=== PATIENT | female | born 1940 | race Caucasian/White ===

== ENCOUNTER 2018-03-09 12:58 | Inpatient (IN) | payer OTHER ==
[2018-03-09 13:54] LABS: % BASOPHILS 0.4 % (0.0-2.0); % EOSINOPHILS 2.1 % (0.0-5.0); % LYMPHOCYTES 29.9 % (20.0-50.0); % MONOCYTES 8.6 % (2.0-10.0); EOSINOPHILE ABSOLUTE 0.1 Th/cmm (0.1-0.4); HEMATOCRIT 33.7 % (41.0-60); HEMOGLOBIN 11.3 gm/dL (12-16); LYMPHOCYTE ABSOLUTE 1.7 Th/cmm (1.5-3.0); MEAN CELL VOLUME 92.6 fl (81-100); MEAN CORPUSCULAR HEMOGLOBIN 31.1 pg (27.0-31.0); MEAN CORPUSCULAR HGB CONC 33.6 pg (28.0-36.0); MONOCYTE ABSOLUTE 0.5 Th/cmm (0.3-1.0); NEUTROPHILE ABSOLUTE 3.4 Th/cmm (1.8-8.0); PLATELET COUNT 158 Th/cmm (150-400); RED BLOOD COUNT 3.64 Mil/cmm (3.80-5.20); RED CELL DISTRIBUTION WIDTH 13.7 % (11.5-20.0); WHITE BLOOD COUNT 5.7 Th/cmm (4.8-10.8)
[2018-03-09 14:11] LABS: ALB/GLOB RATIO 1.7 (1.0-1.8); ALBUMIN 3.7 gm/dL (3.7-5.3); ALKALINE PHOSPHATASE 75 U/L (34-104); ANION GAP 12.3 (7.0-16.0); BILIRUBIN,TOTAL 0.4 mg/dL (0.3-1.0); BUN - UREA NITROGEN 38 mg/dL (7-25); CALCIUM SERUM 8.9 mg/dL (8.6-10.3); CARBON DIOXIDE 24.4 mEq/L (21.0-31.0); CHLORIDE 109 mEq/L (98-107); CREATININE - SERUM 1.2 mg/dL (0.6-1.2); GLUCOSE 107 mg/dL (70-105); MAGNESIUM 2.2 mg/dL (1.9-2.7); PHOSPHOROUS 3.1 mg/dL (2.5-5.0); POTASSIUM SERUM 3.7 mEq/L (3.5-5.1); SGOT 30 U/L (13-39); SGPT/ALT 30 U/L (7-52); SODIUM SERUM 142 mEq/L (136-145); TOTAL PROTEIN,SERUM 5.9 gm/dL (6.0-8.3)
[2018-03-09 15:03] LABS: URINE SOURCE CLEAN C
[2018-03-09 15:05] LABS: URINE BILIRUBIN NEGATIVE (NEGATIVE); URINE BLOOD MODERATE (NEGATIVE); URINE GLUCOSE (UA) NEGATIVE (NEGATIVE); URINE KETONE NEGATIVE (NEGATIVE); URINE LEUKOCYTE ESTERASE NEGATIVE (NEGATIVE); URINE MICROSCOPIC INDICATED? YES; URINE NITRATE NEGATIVE (NEGATIVE); URINE PH 7.5 (4.6 - 8.0); URINE PROTEIN NEGATIVE (NEGATIVE); URINE UROBILINOGEN 0.2 E.U./dL (0.2 - 1.0)
[2018-03-09 15:06] LABS: URINE CLARITY CLEAR (CLEAR); URINE COLOR YELLOW
[2018-03-09 15:10] LABS: URINE BACTERIA FEW /hpf (NONE SEEN); URINE EPITHELIAL CELLS FEW /lpf (FEW)
[2018-03-09 15:20] LABS: AMPHETAMINE URINE NEGATIVE (NEGATIVE); BARBITURATES URINE NEGATIVE (NEGATIVE); BENZODIAZEPINES QUAL URINE NEGATIVE (NEGATIVE); CANNABINOID THC NEGATIVE (NEGATIVE); COCAINE METABOLITE QUAL URINE NEGATIVE (NEGATIVE); METHADONE URINE NEGATIVE (NEGATIVE); METHAMPHETAMINES QUAL URINE NEGATIVE (NEGATIVE); OPIATES (MORPHINE) QUAL. URINE NEGATIVE (NEGATIVE); PHENCYCLIDINE (PCP) URINE NEGATIVE (NEGATIVE); TRICYCLICS (TCA) QUAL. URINE POSITIVE (NEGATIVE)
[2018-03-09 15:57] LABS: INR 0.99 (0.5-1.4); PROTHROMBIN TIME (TEST) 10.3 SECONDS (9.5-11.5)
[2018-03-09 18:17] VITALS: BP 161/93
[2018-03-09] MEDS ORDERED: Maalox 30 mL Cup PO PRN (18:20)
[2018-03-09] MEDS ORDERED: Magnesium Hydroxide (MOM) 30 mL UDC PO PRN (18:20)
[2018-03-10] MEDS: Multivitamin Tab PO SCH ×2 (08:41→08:57)
--- NOTE | 2018-03-10 10:01 | History & Physical ---
ADMIT DATE: 03/09/2018 CHIEF COMPLAINT: Agitation. HISTORY OF PRESENT ILLNESS: This is a 77-year-old female who was admitted from halfway facility to the Emergency Room of [facility] due to increase in agitation. REVIEW OF SYSTEMS: GENERAL: This is a 77-year-old female that appears as stated. No fever. No weakness. HEENT: No headache. No dizziness. EYES: No eye pain. No blurring of vision. NECK: No neck pain. No nuchal rigidity. CHEST: No chest pain or palpitation. PULMONARY: No shortness of breath. No coughing. GASTROINTESTINAL: No diarrhea. No constipation. No abdominal pain. MUSCULOSKELETAL: No joint pain. No muscle pain. SOCIAL HISTORY: The patient lives in assisted living prior to hospitalization. PSYCHIATRIC HISTORY: Includes dementia. PAST SURGICAL HISTORY: Unremarkable. FAMILY HISTORY: Unremarkable. PAST MEDICAL HISTORY: Includes osteoarthritis. PHYSICAL EXAMINATION: VITAL SIGNS: Temperature 97.6, heart rate 67, blood pressure 137/86, respiration of 18, 97% on room air. HEENT: Head is atraumatic and normocephalic. Eyes: Bilateral conjunctivae are clear. Bilateral pupils equal, round, reactive. NECK: Supple. No JVD. CARDIOVASCULAR: S1 and S2 without murmur. PULMONARY: Clear to auscultation. GASTROINTESTINAL: Soft and nontender without guarding. Positive bowel sounds. MUSCULOSKELETAL: No clubbing. No cyanosis noted. ASSESSMENT: 1. Dementia. 2. Osteoarthritis. PLAN: We will admit the patient to Psychiatric Unit. We will follow up with a psychiatrist to monitor the patient's condition and behavior. Treatment plans were discussed with the patient's nurse. Treatment plans were discussed with the Dr. Pereyra. JOB# [id number]
--- NOTE | 2018-03-11 09:40 | General Progress Note ---
Subjective - Review of Systems Events since last encounter: awake with increased agitation Objective - Results Result Diagrams: 03/09/18 13:46 03/09/18 13:46 Recent Labs: Laboratory Last Values WBC 5.7 Th/cmm (4.8-10.8) 03/09/18 13:46 RBC 3.64 Mil/cmm (3.80-5.20) L 03/09/18 13:46 Hgb 11.3 gm/dL (12-16) L 03/09/18 13:46 Hct 33.7 % (41.0-60) L 03/09/18 13:46 MCV 92.6 fl (81-100) 03/09/18 13:46 MCH 31.1 pg (27.0-31.0) H 03/09/18 13:46 MCHC Differential 33.6 pg (28.0-36.0) 03/09/18 13:46 RDW 13.7 % (11.5-20.0) 03/09/18 13:46 Plt Count 158 Th/cmm (150-400) 03/09/18 13:46 MPV 10.0 fl 03/09/18 13:46 Neutrophils % 59.0 % (40.0-80.0) 03/09/18 13:46 Lymphocytes % 29.9 % (20.0-50.0) 03/09/18 13:46 Monocytes % 8.6 % (2.0-10.0) 03/09/18 13:46 Eosinophils % 2.1 % (0.0-5.0) 03/09/18 13:46 Basophils % 0.4 % (0.0-2.0) 03/09/18 13:46 PT 10.3 SECONDS (9.5-11.5) 03/09/18 13:46 INR 0.99 (0.5-1.4) 03/09/18 13:46 PTT (Actin FS) 26.2 SECONDS (26.0-38.0) 03/09/18 13:46 Sodium 142 mEq/L (136-145) 03/09/18 13:46 Potassium 3.7 mEq/L (3.5-5.1) 03/09/18 13:46 Chloride 109 mEq/L (98-107) H 03/09/18 13:46 Carbon Dioxide 24.4 mEq/L (21.0-31.0) 03/09/18 13:46 Anion Gap 12.3 (7.0-16.0) 03/09/18 13:46 BUN 38 mg/dL (7-25) H 03/09/18 13:46 Creatinine 1.2 mg/dL (0.6-1.2) 03/09/18 13:46 Est GFR ( Amer) TNP 03/09/18 13:46 Est GFR (Non-Af Amer) TNP 03/09/18 13:46 BUN/Creatinine Ratio 31.7 03/09/18 13:46 Glucose 107 mg/dL (70-105) H 03/09/18 13:46 Calcium 8.9 mg/dL (8.6-10.3) 03/09/18 13:46 Phosphorus 3.1 mg/dL (2.5-5.0) 03/09/18 13:46 Magnesium 2.2 mg/dL (1.9-2.7) 03/09/18 13:46 Total Bilirubin 0.4 mg/dL (0.3-1.0) 03/09/18 13:46 AST 30 U/L (13-39) 03/09/18 13:46 ALT 30 U/L (7-52) 03/09/18 13:46 Alkaline Phosphatase 75 U/L (34-104) 03/09/18 13:46 Total Protein 5.9 gm/dL (6.0-8.3) L 03/09/18 13:46 Albumin 3.7 gm/dL (3.7-5.3) 03/09/18 13:46 Globulin 2.2 gm/dL 03/09/18 13:46 Albumin/Globulin Ratio 1.7 (1.0-1.8) 03/09/18 13:46 TSH 4.46 uIU/ml (0.34-5.60) 03/09/18 13:46 Urine Source CLEAN C 03/09/18 14:50 Urine Color YELLOW 03/09/18 14:50 Urine Clarity CLEAR (CLEAR) 03/09/18 14:50 Urine pH 7.5 (4.6 - 8.0) 03/09/18 14:50 Ur Specific [place] 1.015 (1.005-1.030) 03/09/18 14:50 Urine Protein NEGATIVE mg/dL (NEGATIVE) 03/09/18 14:50 Urine Glucose (UA) NEGATIVE mg/dL (NEGATIVE) 03/09/18 14:50 Urine Ketones NEGATIVE mg/dL (NEGATIVE) 03/09/18 14:50 Urine Blood MODERATE (NEGATIVE) H 03/09/18 14:50 Urine Nitrate NEGATIVE (NEGATIVE) 03/09/18 14:50 Urine Bilirubin NEGATIVE (NEGATIVE) 03/09/18 14:50 Urine Urobilinogen 0.2 E.U./dL (0.2 - 1.0) 03/09/18 14:50 Ur Leukocyte Esterase NEGATIVE (NEGATIVE) 03/09/18 14:50 Urine RBC 10-25 /hpf (0-5) H 03/09/18 14:50 Urine WBC 2-5 /hpf (0-5) 03/09/18 14:50 Ur Epithelial Cells FEW /lpf (FEW) 03/09/18 14:50 Urine Bacteria FEW /hpf (NONE SEEN) 03/09/18 14:50 Urine Opiates Screen NEGATIVE (NEGATIVE) 03/09/18 14:50 Urine Methadone Screen NEGATIVE (NEGATIVE) 03/09/18 14:50 Ur Barbiturates Screen NEGATIVE (NEGATIVE) 03/09/18 14:50 Valproic Acid 41.3 ug/mL (50.0-100.0) L 03/09/18 13:46 Ur Tricyclics Screen POSITIVE (NEGATIVE) H 03/09/18 14:50 Ur Phencyclidine Scrn NEGATIVE (NEGATIVE) 03/09/18 14:50 Amphetamines Screen NEGATIVE (NEGATIVE) 03/09/18 14:50 U Methamphetamines Scrn NEGATIVE (NEGATIVE) 03/09/18 14:50 U Benzodiazepines Scrn NEGATIVE (NEGATIVE) 03/09/18 14:50 U Cocaine Metab Screen NEGATIVE (NEGATIVE) 03/09/18 14:50 U Cannabinoids Screen NEGATIVE (NEGATIVE) 03/09/18 14:50 - Physical Exam Vitals and I&O: Vital Signs Temp 98.1 F 03/11/18 06:31 Pulse 62 03/11/18 06:31 Resp 22 03/11/18 06:31 BP 143/79 03/11/18 06:31 Pulse Ox 97 03/11/18 06:31 Intake & Output 03/10/18 03/11/18 03/11/18 18:59 06:59 18:59 Intake Total 950 240 Balance 950 240 Intake: Oral 950 240 Other: # Voids 4 1 # Bowel Movements 1 Active Medications: Current Medications Acetaminophen (Tylenol) 650 mg PO Q4HR PRN PRN Reason: Mild Pain / Temp above 100 Stop: 05/08/18 18:19 Al Hydrox/Mg Hydrox/Simethicone (Maalox) 30 ml PO Q4HR PRN PRN Reason: GI DISTRESS Stop: 05/08/18 18:19 Divalproex Sodium (Depakote Dr) 250 mg PO TID RICHARD; Protocol Stop: 05/09/18 08:59 Last Admin: 03/10/18 20:26 Dose: Not Given Lorazepam (Ativan) 0.5 mg PO Q4HR PRN; Protocol PRN Reason: Agitation Stop: 04/08/18 18:19 Last Admin: 03/10/18 23:51 Dose: 0.5 mg Lorazepam (Ativan) 1 mg PO TID PRN; Protocol PRN Reason: Anxiety Stop: 05/09/18 00:21 Magnesium Hydroxide (Milk Of Magnesia) 30 ml PO HS PRN PRN Reason: Constipation Memantine (Namenda) 5 mg PO DAILY RICHARD Stop: 05/10/18 08:59 Multivitamins/Vitamin C (Theragran) 1 tab PO DAILY RICHARD Stop: 05/09/18 08:59 Last Admin: 03/10/18 08:57 Dose: Not Given Quetiapine Fumarate (Seroquel) 100 mg PO TID RICHARD; Protocol Stop: 05/09/18 08:59 Last Admin: 03/10/18 20:27 Dose: Not Given Zolpidem Tartrate (Ambien) 5 mg PO HS PRN PRN Reason: Insomnia Stop: 05/08/18 18:19 Last Admin: 03/10/18 23:50 Dose: 5 mg General: No acute distress HEENT: Atraumatic Neck: Supple Cardiovascular: Regular rate, Normal S1, Normal S2 Lungs: Clear to auscultation Assessment/Plan - Problem List Patient Problems: All Active Problems LEFT FACIAL AND L ARM REDNESS (Acute) - Plan Plan: as per psych
--- NOTE | 2018-03-11 11:02 | Progress Notes ---
DATE: SUBJECTIVE: The patient is currently in the hospital, agitated, very aggressive, had been trying to climb out of bed. The patient with increased agitation, slamming doors and windows. History of dementia. On [id number], the patient calmer at this time, remains pretty confused, disoriented. She knows where she is, but does not know why she is here, noted to be upset also believing that medication is a poison, refusing night time medication due to the belief that it is poison. The patient was noted yesterday to be crying while watching TV, strange behaviors. ASSESSMENT: The patient remains disoriented as noted, minimally interactive today, telling me "go away," difficult interview. PLAN: We will continue to monitor. Continue Seroquel as noted. Consider the addition of Aricept and Namenda. Given ongoing symptoms, she remains pretty impulsive, unpredictable, ongoing safety concerns. JOB# [id number]
[2018-03-11] MEDS: Multivitamin Tab PO SCH (18:10)
[2018-03-12] MEDS: Multivitamin Tab PO SCH (10:17)
--- NOTE | 2018-03-12 10:27 | General Progress Note ---
Subjective - Review of Systems Events since last encounter: awake irritable disorganized Objective - Results Result Diagrams: 03/09/18 13:46 03/09/18 13:46 Recent Labs: Laboratory Last Values WBC 5.7 Th/cmm (4.8-10.8) 03/09/18 13:46 RBC 3.64 Mil/cmm (3.80-5.20) L 03/09/18 13:46 Hgb 11.3 gm/dL (12-16) L 03/09/18 13:46 Hct 33.7 % (41.0-60) L 03/09/18 13:46 MCV 92.6 fl (81-100) 03/09/18 13:46 MCH 31.1 pg (27.0-31.0) H 03/09/18 13:46 MCHC Differential 33.6 pg (28.0-36.0) 03/09/18 13:46 RDW 13.7 % (11.5-20.0) 03/09/18 13:46 Plt Count 158 Th/cmm (150-400) 03/09/18 13:46 MPV 10.0 fl 03/09/18 13:46 Neutrophils % 59.0 % (40.0-80.0) 03/09/18 13:46 Lymphocytes % 29.9 % (20.0-50.0) 03/09/18 13:46 Monocytes % 8.6 % (2.0-10.0) 03/09/18 13:46 Eosinophils % 2.1 % (0.0-5.0) 03/09/18 13:46 Basophils % 0.4 % (0.0-2.0) 03/09/18 13:46 PT 10.3 SECONDS (9.5-11.5) 03/09/18 13:46 INR 0.99 (0.5-1.4) 03/09/18 13:46 PTT (Actin FS) 26.2 SECONDS (26.0-38.0) 03/09/18 13:46 Sodium 142 mEq/L (136-145) 03/09/18 13:46 Potassium 3.7 mEq/L (3.5-5.1) 03/09/18 13:46 Chloride 109 mEq/L (98-107) H 03/09/18 13:46 Carbon Dioxide 24.4 mEq/L (21.0-31.0) 03/09/18 13:46 Anion Gap 12.3 (7.0-16.0) 03/09/18 13:46 BUN 38 mg/dL (7-25) H 03/09/18 13:46 Creatinine 1.2 mg/dL (0.6-1.2) 03/09/18 13:46 Est GFR ( Amer) TNP 03/09/18 13:46 Est GFR (Non-Af Amer) TNP 03/09/18 13:46 BUN/Creatinine Ratio 31.7 03/09/18 13:46 Glucose 107 mg/dL (70-105) H 03/09/18 13:46 Calcium 8.9 mg/dL (8.6-10.3) 03/09/18 13:46 Phosphorus 3.1 mg/dL (2.5-5.0) 03/09/18 13:46 Magnesium 2.2 mg/dL (1.9-2.7) 03/09/18 13:46 Total Bilirubin 0.4 mg/dL (0.3-1.0) 03/09/18 13:46 AST 30 U/L (13-39) 03/09/18 13:46 ALT 30 U/L (7-52) 03/09/18 13:46 Alkaline Phosphatase 75 U/L (34-104) 03/09/18 13:46 Total Protein 5.9 gm/dL (6.0-8.3) L 03/09/18 13:46 Albumin 3.7 gm/dL (3.7-5.3) 03/09/18 13:46 Globulin 2.2 gm/dL 03/09/18 13:46 Albumin/Globulin Ratio 1.7 (1.0-1.8) 03/09/18 13:46 TSH 4.46 uIU/ml (0.34-5.60) 03/09/18 13:46 Urine Source CLEAN C 03/09/18 14:50 Urine Color YELLOW 03/09/18 14:50 Urine Clarity CLEAR (CLEAR) 03/09/18 14:50 Urine pH 7.5 (4.6 - 8.0) 03/09/18 14:50 Ur Specific [place] 1.015 (1.005-1.030) 03/09/18 14:50 Urine Protein NEGATIVE mg/dL (NEGATIVE) 03/09/18 14:50 Urine Glucose (UA) NEGATIVE mg/dL (NEGATIVE) 03/09/18 14:50 Urine Ketones NEGATIVE mg/dL (NEGATIVE) 03/09/18 14:50 Urine Blood MODERATE (NEGATIVE) H 03/09/18 14:50 Urine Nitrate NEGATIVE (NEGATIVE) 03/09/18 14:50 Urine Bilirubin NEGATIVE (NEGATIVE) 03/09/18 14:50 Urine Urobilinogen 0.2 E.U./dL (0.2 - 1.0) 03/09/18 14:50 Ur Leukocyte Esterase NEGATIVE (NEGATIVE) 03/09/18 14:50 Urine RBC 10-25 /hpf (0-5) H 03/09/18 14:50 Urine WBC 2-5 /hpf (0-5) 03/09/18 14:50 Ur Epithelial Cells FEW /lpf (FEW) 03/09/18 14:50 Urine Bacteria FEW /hpf (NONE SEEN) 03/09/18 14:50 Urine Opiates Screen NEGATIVE (NEGATIVE) 03/09/18 14:50 Urine Methadone Screen NEGATIVE (NEGATIVE) 03/09/18 14:50 Ur Barbiturates Screen NEGATIVE (NEGATIVE) 03/09/18 14:50 Valproic Acid 41.3 ug/mL (50.0-100.0) L 03/09/18 13:46 Ur Tricyclics Screen POSITIVE (NEGATIVE) H 03/09/18 14:50 Ur Phencyclidine Scrn NEGATIVE (NEGATIVE) 03/09/18 14:50 Amphetamines Screen NEGATIVE (NEGATIVE) 03/09/18 14:50 U Methamphetamines Scrn NEGATIVE (NEGATIVE) 03/09/18 14:50 U Benzodiazepines Scrn NEGATIVE (NEGATIVE) 03/09/18 14:50 U Cocaine Metab Screen NEGATIVE (NEGATIVE) 03/09/18 14:50 U Cannabinoids Screen NEGATIVE (NEGATIVE) 03/09/18 14:50 - Physical Exam Vitals and I&O: Vital Signs Temp 98.2 F 03/11/18 20:36 Pulse 85 03/11/18 20:36 Resp 18 03/11/18 20:36 BP 179/99 03/11/18 20:36 Pulse Ox 93 03/11/18 20:36 Intake & Output 03/11/18 03/12/18 03/12/18 18:59 06:59 18:59 Intake Total 950 240 Balance 950 240 Weight (lbs) 79.379 kg Intake: Oral 950 240 Other: # Voids 3 # Bowel Movements 2 0 Weight Source Bedscale Active Medications: Current Medications Acetaminophen (Tylenol) 650 mg PO Q4HR PRN PRN Reason: Mild Pain / Temp above 100 Stop: 05/08/18 18:19 Al Hydrox/Mg Hydrox/Simethicone (Maalox) 30 ml PO Q4HR PRN PRN Reason: GI DISTRESS Stop: 05/08/18 18:19 Divalproex Sodium (Depakote Dr) 250 mg PO TID RICHARD; Protocol Stop: 05/09/18 08:59 Last Admin: 03/12/18 10:17 Dose: Not Given Lorazepam (Ativan) 0.5 mg PO Q4HR PRN; Protocol PRN Reason: Agitation Stop: 04/08/18 18:19 Last Admin: 03/10/18 23:51 Dose: 0.5 mg Lorazepam (Ativan) 1 mg PO TID PRN; Protocol PRN Reason: Anxiety Stop: 05/09/18 00:21 Magnesium Hydroxide (Milk Of Magnesia) 30 ml PO HS PRN PRN Reason: Constipation Memantine (Namenda) 5 mg PO DAILY RICHARD Stop: 05/10/18 08:59 Last Admin: 03/12/18 10:17 Dose: Not Given Multivitamins/Vitamin C (Theragran) 1 tab PO DAILY RICHARD Stop: 05/09/18 08:59 Last Admin: 03/12/18 10:17 Dose: Not Given Quetiapine Fumarate (Seroquel) 100 mg PO TID RICHARD; Protocol Stop: 05/09/18 08:59 Last Admin: 03/12/18 10:17 Dose: Not Given Zolpidem Tartrate (Ambien) 5 mg PO HS PRN PRN Reason: Insomnia Stop: 05/08/18 18:19 Last Admin: 03/10/18 23:50 Dose: 5 mg General: No acute distress HEENT: Atraumatic Neck: Supple Cardiovascular: Regular rate, Normal S1, Normal S2 Lungs: Clear to auscultation Assessment/Plan - Problem List Patient Problems: All Active Problems LEFT FACIAL AND L ARM REDNESS (Acute) - Plan Plan: as per psych
[2018-03-12] MEDS ORDERED: Haloperidol Lactate 5 mg/mL 1mL Vial IM STA (11:18)
--- NOTE | 2018-03-12 13:30 | Psychiatric Evaluation ---
DATE OF SERVICE: 03/10/2018 JUSTIFICATION FOR HOSPITALIZATION: The patient coming in from [facility] with increased agitation, slamming the doors and windows. CHIEF COMPLAINT: "The nurses are jealous of me." HISTORY OF PRESENT ILLNESS: A 77-year-old female coming from an outside facility unruly, agitated, aggressive behaviors, slamming doors, slamming windows, hitting the gonzales, confused, pacing the hallways, very upset, angry. On [id number], the patient is AO to name, not place, not situation, not year. Convinced that nursing staff there were jealous of her because their husbands, she is claiming, were taking pictures of her. The patient believes the year is 1917, does know the month, does not know the city, does not know really where she is or why she is here. The patient is yelling "go to hell." Receiving emergency medications upon initial presentation, very upset, mood "mad." PAST PSYCHIATRIC HISTORY: Dementia. PAST MEDICAL HISTORY: As noted. Please see full H and P. SOCIAL HISTORY: The patient states she was born in [place]. Not . She states she has 3 children. She states her children live with her, but she is living at a nursing home home, so this is untrue information. No noted drugs, alcohol, or tobacco. MENTAL STATUS EXAMINATION: Stated age, fair eye contact. AO to name only. Mood "mad." Affect flat. Thought processes were confused, disoriented. No SI, no HI. The patient with acute delusions that nursing staff were jealous of her. Insight and judgment diminished. Impulse control is poor. PROVISIONAL DIAGNOSES: Dementia; dementia with behaviors; psychosis, unspecified; rule out delusional disorder. Under medical, please see full H and P. FUNCTIONAL IMPAIRMENTS: None noted. Pain, "none." ASSESSMENT: The patient is unruly, agitated, delusional, striking out at others. PLAN: We will continue to monitor. The patient may benefit from dose adjustments to try to control her symptoms. TREATMENT PLAN: Includes group as well as milieu therapy. CONDITIONS FOR DISCHARGE: Improved mood, improved affect, better control of her delusions, and her aggressive behaviors. JOB# [id number]
--- NOTE | 2018-03-12 19:43 | Progress Notes ---
DATE: 03/12/2018 SUBJECTIVE: The patient in the hospital, very aggressive, agitated, requiring IM injection yesterday for throwing objects at staff, trying to hit staff, trying to punch staff. The patient is refusing treatment, still believing that the medication is poisoned, very upset, impulsive, unpredictable and angry. ASSESSMENT: The patient remains symptomatic, aggressive, has ongoing confusion and disorientation, highly impulsive, unpredictable, aggressive. PLAN: The patient remains delusional. We will continue to monitor. We may need to follow [place] petition. We will encourage better med compliance. JOB# [id number]
[2018-03-13] MEDS: Multivitamin Tab PO SCH (09:53)
--- NOTE | 2018-03-13 21:30 | Progress Notes ---
DATE: 03/13/[address] Howe. Case was discussed with staff of the patient, reviewed records. The patient is from [facility], because of agitation, slamming doors and windows, believing the nurses are jealous of her, continues to be aggressive, agitated, continues to be irritable. She is unable to tell her age, where she is, why she is here. Continues to have poor insight. She is demented. She was seen by Dr. Kirk, who initiated medications. She is on Depakote 250 mg 3 times a day, Namenda 5 mg daily, Seroquel 100 mg 3 times a day with no side effects, no sedation, no nausea, no extrapyramidal symptoms. The patient continues to have poor insight, unpredictable, impulsive, easily agitated, confused, demented. We will continue the patient in group therapy, milieu therapy, and adjust the medications as needed. JOB# [id number]
[2018-03-14] MEDS: Multivitamin Tab PO SCH ×2 (10:32→14:51)
--- NOTE | 2018-03-14 15:43 | General Progress Note ---
Subjective - Review of Systems Events since last encounter: patient awake irritable, confused no signs of pain Objective - Results Result Diagrams: 03/09/18 13:46 03/09/18 13:46 Recent Labs: Laboratory Last Values WBC 5.7 Th/cmm (4.8-10.8) 03/09/18 13:46 RBC 3.64 Mil/cmm (3.80-5.20) L 03/09/18 13:46 Hgb 11.3 gm/dL (12-16) L 03/09/18 13:46 Hct 33.7 % (41.0-60) L 03/09/18 13:46 MCV 92.6 fl (81-100) 03/09/18 13:46 MCH 31.1 pg (27.0-31.0) H 03/09/18 13:46 MCHC Differential 33.6 pg (28.0-36.0) 03/09/18 13:46 RDW 13.7 % (11.5-20.0) 03/09/18 13:46 Plt Count 158 Th/cmm (150-400) 03/09/18 13:46 MPV 10.0 fl 03/09/18 13:46 Neutrophils % 59.0 % (40.0-80.0) 03/09/18 13:46 Lymphocytes % 29.9 % (20.0-50.0) 03/09/18 13:46 Monocytes % 8.6 % (2.0-10.0) 03/09/18 13:46 Eosinophils % 2.1 % (0.0-5.0) 03/09/18 13:46 Basophils % 0.4 % (0.0-2.0) 03/09/18 13:46 PT 10.3 SECONDS (9.5-11.5) 03/09/18 13:46 INR 0.99 (0.5-1.4) 03/09/18 13:46 PTT (Actin FS) 26.2 SECONDS (26.0-38.0) 03/09/18 13:46 Sodium 142 mEq/L (136-145) 03/09/18 13:46 Potassium 3.7 mEq/L (3.5-5.1) 03/09/18 13:46 Chloride 109 mEq/L (98-107) H 03/09/18 13:46 Carbon Dioxide 24.4 mEq/L (21.0-31.0) 03/09/18 13:46 Anion Gap 12.3 (7.0-16.0) 03/09/18 13:46 BUN 38 mg/dL (7-25) H 03/09/18 13:46 Creatinine 1.2 mg/dL (0.6-1.2) 03/09/18 13:46 Est GFR ( Amer) TNP 03/09/18 13:46 Est GFR (Non-Af Amer) TNP 03/09/18 13:46 BUN/Creatinine Ratio 31.7 03/09/18 13:46 Glucose 107 mg/dL (70-105) H 03/09/18 13:46 Calcium 8.9 mg/dL (8.6-10.3) 03/09/18 13:46 Phosphorus 3.1 mg/dL (2.5-5.0) 03/09/18 13:46 Magnesium 2.2 mg/dL (1.9-2.7) 03/09/18 13:46 Total Bilirubin 0.4 mg/dL (0.3-1.0) 03/09/18 13:46 AST 30 U/L (13-39) 03/09/18 13:46 ALT 30 U/L (7-52) 03/09/18 13:46 Alkaline Phosphatase 75 U/L (34-104) 03/09/18 13:46 Total Protein 5.9 gm/dL (6.0-8.3) L 03/09/18 13:46 Albumin 3.7 gm/dL (3.7-5.3) 03/09/18 13:46 Globulin 2.2 gm/dL 03/09/18 13:46 Albumin/Globulin Ratio 1.7 (1.0-1.8) 03/09/18 13:46 TSH 4.46 uIU/ml (0.34-5.60) 03/09/18 13:46 Urine Source CLEAN C 03/09/18 14:50 Urine Color YELLOW 03/09/18 14:50 Urine Clarity CLEAR (CLEAR) 03/09/18 14:50 Urine pH 7.5 (4.6 - 8.0) 03/09/18 14:50 Ur Specific [place] 1.015 (1.005-1.030) 03/09/18 14:50 Urine Protein NEGATIVE mg/dL (NEGATIVE) 03/09/18 14:50 Urine Glucose (UA) NEGATIVE mg/dL (NEGATIVE) 03/09/18 14:50 Urine Ketones NEGATIVE mg/dL (NEGATIVE) 03/09/18 14:50 Urine Blood MODERATE (NEGATIVE) H 03/09/18 14:50 Urine Nitrate NEGATIVE (NEGATIVE) 03/09/18 14:50 Urine Bilirubin NEGATIVE (NEGATIVE) 03/09/18 14:50 Urine Urobilinogen 0.2 E.U./dL (0.2 - 1.0) 03/09/18 14:50 Ur Leukocyte Esterase NEGATIVE (NEGATIVE) 03/09/18 14:50 Urine RBC 10-25 /hpf (0-5) H 03/09/18 14:50 Urine WBC 2-5 /hpf (0-5) 03/09/18 14:50 Ur Epithelial Cells FEW /lpf (FEW) 03/09/18 14:50 Urine Bacteria FEW /hpf (NONE SEEN) 03/09/18 14:50 Urine Opiates Screen NEGATIVE (NEGATIVE) 03/09/18 14:50 Urine Methadone Screen NEGATIVE (NEGATIVE) 03/09/18 14:50 Ur Barbiturates Screen NEGATIVE (NEGATIVE) 03/09/18 14:50 Valproic Acid 41.3 ug/mL (50.0-100.0) L 03/09/18 13:46 Ur Tricyclics Screen POSITIVE (NEGATIVE) H 03/09/18 14:50 Ur Phencyclidine Scrn NEGATIVE (NEGATIVE) 03/09/18 14:50 Amphetamines Screen NEGATIVE (NEGATIVE) 03/09/18 14:50 U Methamphetamines Scrn NEGATIVE (NEGATIVE) 03/09/18 14:50 U Benzodiazepines Scrn NEGATIVE (NEGATIVE) 03/09/18 14:50 U Cocaine Metab Screen NEGATIVE (NEGATIVE) 03/09/18 14:50 U Cannabinoids Screen NEGATIVE (NEGATIVE) 03/09/18 14:50 - Physical Exam Vitals and I&O: Vital Signs Temp 97.2 F 03/14/18 14:00 Pulse 77 03/14/18 14:00 Resp 18 03/14/18 14:00 BP 161/88 03/14/18 14:00 Pulse Ox 97 03/14/18 14:00 Intake & Output 03/13/18 03/14/18 03/14/18 18:59 06:59 18:59 Intake Total 800 120 Balance 800 120 Intake: Oral 800 120 Other: # Voids 3 3 # Bowel Movements 1 Active Medications: Current Medications Acetaminophen (Tylenol) 650 mg PO Q4HR PRN PRN Reason: Mild Pain / Temp above 100 Stop: 05/08/18 18:19 Al Hydrox/Mg Hydrox/Simethicone (Maalox) 30 ml PO Q4HR PRN PRN Reason: GI DISTRESS Stop: 05/08/18 18:19 Divalproex Sodium (Depakote Dr) 250 mg PO TID RICHARD; Protocol Stop: 05/09/18 08:59 Last Admin: 03/14/18 14:52 Dose: Not Given Lorazepam (Ativan) 0.5 mg PO Q4HR PRN; Protocol PRN Reason: Agitation Stop: 04/08/18 18:19 Last Admin: 03/10/18 23:51 Dose: 0.5 mg Lorazepam (Ativan) 1 mg PO TID PRN; Protocol PRN Reason: Anxiety Stop: 05/09/18 00:21 Magnesium Hydroxide (Milk Of Magnesia) 30 ml PO HS PRN PRN Reason: Constipation Memantine (Namenda) 5 mg PO DAILY RICHARD Stop: 05/10/18 08:59 Last Admin: 03/14/18 08:30 Dose: Not Given Multivitamins/Vitamin C (Theragran) 1 tab PO DAILY RICHARD Stop: 05/09/18 08:59 Last Admin: 03/14/18 14:51 Dose: Not Given Quetiapine Fumarate (Seroquel) 100 mg PO TID RICHARD; Protocol Stop: 05/09/18 08:59 Last Admin: 03/14/18 14:52 Dose: Not Given Zolpidem Tartrate (Ambien) 5 mg PO HS PRN PRN Reason: Insomnia Stop: 05/08/18 18:19 Last Admin: 03/10/18 23:50 Dose: 5 mg General: No acute distress HEENT: Atraumatic Neck: Supple Cardiovascular: Regular rate, Normal S1, Normal S2 Lungs: Clear to auscultation Assessment/Plan - Problem List Patient Problems: All Active Problems LEFT FACIAL AND L ARM REDNESS (Acute) - Plan Plan: as per psych Nutritional Asmnt/Malnutr-PDOC - Dietary Evaluation Malnutrition Findings (Please click <Entered> for more info): Nutritional Asmnt/Malnutrition Start: 03/14/18 14: 47 Text: Status: Complete Freq: Protocol: Document 03/14/18 14:47 TATYANAJOEY (Rec: 03/14/18 14:59 [email or web address] [email or web address]) Nutritional Asmnt/Malnutrition Patient General Information Nutritional Screening Moderate Risk Diagnosis psychosis Pertinent Medical Hx/Surgical Hx OA Subjective Information pt seen sitting in gomez-chair having lunch by herself. Per EMR, PO intake 100% of meals. Current Diet Order/ Nutrition Support cardiac mech soft chopped Pertinent Medications theragran, seroquel Pertinent Labs 03/09 Cl 109, BUN 38, glucose 107 Nutritional Hx/Data Height 1.57 m Height (Calculated Centimeters) 157.5 Current Weight (lbs) 79.379 kg Weight (Calculated Kilograms) 79.4 Weight (Calculated Grams) 01881.7 [place] Body Weight 110 Body Mass Index (BMI) 32.0 GI Symptoms Last BM 03/13 Skin Integrity/Comment: intact Current %PO Good (75-100%) Estimated Nutritional Goals Calories/Kcals/Kg 25-30 Kcals Calculated 9765-0752 Protein g/k-1.2 Protein Calculated 57-68 Fluid: ml 1425-1710ml (1ml/kcal) Nutritional Problem No current Nutrition Prob Problem N/A Malnutrition Alert Is there a minimum of two criteria No selected? Query Text:Check all the applicable criteria. A minimum of two criteria are recommended for diagnosis of either severe or non-severe malnutrition. Malnutrition Related to Morbid Obesity Malnutrition related to morbid obesity No Intervention/Recommendation Comments 1. Continue with mech soft chopped cardiac diet as ordered. 2. Monitor PO intake, wt, labs and skin integrity 3. F/U as low risk in 7 days, 03/21 Expected Outcomes/Goals Expected Outcomes/Goals 1. PO intake to meet at least 75% of nutritional needs. 2. Wt stability, skin to remain intact, labs to approach WNL.
--- NOTE | 2018-03-15 01:54 | Progress Notes ---
DATE: 03/14/2018 SUBJECTIVE: Case discussed with staff of the patient, reviewed records. The patient continues to be delusional and paranoid, easily agitated, loud. Continues to have poor insight. Continues to be unable to make safe plan for self-care, unpredictable, impulsive, needing redirection. She is sleeping better, eating better. She is able to communicate her needs, but yet she is out of touch with reality. No side effects with the medication, no sedation, no nausea, no extrapyramidal symptoms and we will continue to work with the patient in group therapy, milieu therapy, and adjust medication as needed. JOB# [id number]
[2018-03-15] MEDS: Multivitamin Tab PO SCH (08:09)
--- NOTE | 2018-03-15 11:40 | General Progress Note ---
Subjective - Review of Systems Events since last encounter: patient awake and confused Objective - Results Result Diagrams: 03/09/18 13:46 03/09/18 13:46 Recent Labs: Laboratory Last Values WBC 5.7 Th/cmm (4.8-10.8) 03/09/18 13:46 RBC 3.64 Mil/cmm (3.80-5.20) L 03/09/18 13:46 Hgb 11.3 gm/dL (12-16) L 03/09/18 13:46 Hct 33.7 % (41.0-60) L 03/09/18 13:46 MCV 92.6 fl (81-100) 03/09/18 13:46 MCH 31.1 pg (27.0-31.0) H 03/09/18 13:46 MCHC Differential 33.6 pg (28.0-36.0) 03/09/18 13:46 RDW 13.7 % (11.5-20.0) 03/09/18 13:46 Plt Count 158 Th/cmm (150-400) 03/09/18 13:46 MPV 10.0 fl 03/09/18 13:46 Neutrophils % 59.0 % (40.0-80.0) 03/09/18 13:46 Lymphocytes % 29.9 % (20.0-50.0) 03/09/18 13:46 Monocytes % 8.6 % (2.0-10.0) 03/09/18 13:46 Eosinophils % 2.1 % (0.0-5.0) 03/09/18 13:46 Basophils % 0.4 % (0.0-2.0) 03/09/18 13:46 PT 10.3 SECONDS (9.5-11.5) 03/09/18 13:46 INR 0.99 (0.5-1.4) 03/09/18 13:46 PTT (Actin FS) 26.2 SECONDS (26.0-38.0) 03/09/18 13:46 Sodium 142 mEq/L (136-145) 03/09/18 13:46 Potassium 3.7 mEq/L (3.5-5.1) 03/09/18 13:46 Chloride 109 mEq/L (98-107) H 03/09/18 13:46 Carbon Dioxide 24.4 mEq/L (21.0-31.0) 03/09/18 13:46 Anion Gap 12.3 (7.0-16.0) 03/09/18 13:46 BUN 38 mg/dL (7-25) H 03/09/18 13:46 Creatinine 1.2 mg/dL (0.6-1.2) 03/09/18 13:46 Est GFR ( Amer) TNP 03/09/18 13:46 Est GFR (Non-Af Amer) TNP 03/09/18 13:46 BUN/Creatinine Ratio 31.7 03/09/18 13:46 Glucose 107 mg/dL (70-105) H 03/09/18 13:46 Calcium 8.9 mg/dL (8.6-10.3) 03/09/18 13:46 Phosphorus 3.1 mg/dL (2.5-5.0) 03/09/18 13:46 Magnesium 2.2 mg/dL (1.9-2.7) 03/09/18 13:46 Total Bilirubin 0.4 mg/dL (0.3-1.0) 03/09/18 13:46 AST 30 U/L (13-39) 03/09/18 13:46 ALT 30 U/L (7-52) 03/09/18 13:46 Alkaline Phosphatase 75 U/L (34-104) 03/09/18 13:46 Total Protein 5.9 gm/dL (6.0-8.3) L 03/09/18 13:46 Albumin 3.7 gm/dL (3.7-5.3) 03/09/18 13:46 Globulin 2.2 gm/dL 03/09/18 13:46 Albumin/Globulin Ratio 1.7 (1.0-1.8) 03/09/18 13:46 TSH 4.46 uIU/ml (0.34-5.60) 03/09/18 13:46 Urine Source CLEAN C 03/09/18 14:50 Urine Color YELLOW 03/09/18 14:50 Urine Clarity CLEAR (CLEAR) 03/09/18 14:50 Urine pH 7.5 (4.6 - 8.0) 03/09/18 14:50 Ur Specific [place] 1.015 (1.005-1.030) 03/09/18 14:50 Urine Protein NEGATIVE mg/dL (NEGATIVE) 03/09/18 14:50 Urine Glucose (UA) NEGATIVE mg/dL (NEGATIVE) 03/09/18 14:50 Urine Ketones NEGATIVE mg/dL (NEGATIVE) 03/09/18 14:50 Urine Blood MODERATE (NEGATIVE) H 03/09/18 14:50 Urine Nitrate NEGATIVE (NEGATIVE) 03/09/18 14:50 Urine Bilirubin NEGATIVE (NEGATIVE) 03/09/18 14:50 Urine Urobilinogen 0.2 E.U./dL (0.2 - 1.0) 03/09/18 14:50 Ur Leukocyte Esterase NEGATIVE (NEGATIVE) 03/09/18 14:50 Urine RBC 10-25 /hpf (0-5) H 03/09/18 14:50 Urine WBC 2-5 /hpf (0-5) 03/09/18 14:50 Ur Epithelial Cells FEW /lpf (FEW) 03/09/18 14:50 Urine Bacteria FEW /hpf (NONE SEEN) 03/09/18 14:50 Urine Opiates Screen NEGATIVE (NEGATIVE) 03/09/18 14:50 Urine Methadone Screen NEGATIVE (NEGATIVE) 03/09/18 14:50 Ur Barbiturates Screen NEGATIVE (NEGATIVE) 03/09/18 14:50 Valproic Acid 41.3 ug/mL (50.0-100.0) L 03/09/18 13:46 Ur Tricyclics Screen POSITIVE (NEGATIVE) H 03/09/18 14:50 Ur Phencyclidine Scrn NEGATIVE (NEGATIVE) 03/09/18 14:50 Amphetamines Screen NEGATIVE (NEGATIVE) 03/09/18 14:50 U Methamphetamines Scrn NEGATIVE (NEGATIVE) 03/09/18 14:50 U Benzodiazepines Scrn NEGATIVE (NEGATIVE) 03/09/18 14:50 U Cocaine Metab Screen NEGATIVE (NEGATIVE) 03/09/18 14:50 U Cannabinoids Screen NEGATIVE (NEGATIVE) 03/09/18 14:50 - Physical Exam Vitals and I&O: Vital Signs Temp 97.2 F 03/14/18 14:00 Pulse 77 03/14/18 14:00 Resp 18 03/14/18 14:00 BP 161/88 03/14/18 14:00 Pulse Ox 97 03/14/18 14:00 Intake & Output 03/14/18 03/15/18 03/15/18 18:59 06:59 18:59 Intake Total 800 Balance 800 Intake: Oral 800 Other: # Voids 3 # Bowel Movements 1 Active Medications: Current Medications Acetaminophen (Tylenol) 650 mg PO Q4HR PRN PRN Reason: Mild Pain / Temp above 100 Stop: 05/08/18 18:19 Al Hydrox/Mg Hydrox/Simethicone (Maalox) 30 ml PO Q4HR PRN PRN Reason: GI DISTRESS Stop: 05/08/18 18:19 Divalproex Sodium (Depakote Dr) 250 mg PO TID RICHARD; Protocol Stop: 05/09/18 08:59 Last Admin: 03/15/18 08:09 Dose: Not Given Lorazepam (Ativan) 0.5 mg PO Q4HR PRN; Protocol PRN Reason: Agitation Stop: 04/08/18 18:19 Last Admin: 03/10/18 23:51 Dose: 0.5 mg Lorazepam (Ativan) 1 mg PO TID PRN; Protocol PRN Reason: Anxiety Stop: 05/09/18 00:21 Magnesium Hydroxide (Milk Of Magnesia) 30 ml PO HS PRN PRN Reason: Constipation Memantine (Namenda) 5 mg PO DAILY RICHARD Stop: 05/10/18 08:59 Last Admin: 03/15/18 08:09 Dose: Not Given Multivitamins/Vitamin C (Theragran) 1 tab PO DAILY RICHARD Stop: 05/09/18 08:59 Last Admin: 03/15/18 08:09 Dose: Not Given Quetiapine Fumarate (Seroquel) 100 mg PO TID RICHARD; Protocol Stop: 05/09/18 08:59 Last Admin: 03/15/18 08:09 Dose: Not Given Zolpidem Tartrate (Ambien) 5 mg PO HS PRN PRN Reason: Insomnia Stop: 05/08/18 18:19 Last Admin: 03/10/18 23:50 Dose: 5 mg General: No acute distress HEENT: Atraumatic Neck: Supple Cardiovascular: Regular rate, Normal S1, Normal S2 Lungs: Clear to auscultation Assessment/Plan - Problem List Patient Problems: All Active Problems LEFT FACIAL AND L ARM REDNESS (Acute) - Plan Plan: as per psych Nutritional Asmnt/Malnutr-PDOC - Dietary Evaluation Malnutrition Findings (Please click <Entered> for more info): Nutritional Asmnt/Malnutrition Start: 03/14/18 14: 47 Text: Status: Complete Freq: Protocol: Document 03/14/18 14:47 TATYANAJOEY (Rec: 03/14/18 14:59 [email or web address] [email or web address]) Nutritional Asmnt/Malnutrition Patient General Information Nutritional Screening Moderate Risk Diagnosis psychosis Pertinent Medical Hx/Surgical Hx OA Subjective Information pt seen sitting in gomez-chair having lunch by herself. Per EMR, PO intake 100% of meals. Current Diet Order/ Nutrition Support cardiac mech soft chopped Pertinent Medications theragran, seroquel Pertinent Labs 03/09 Cl 109, BUN 38, glucose 107 Nutritional Hx/Data Height 1.57 m Height (Calculated Centimeters) 157.5 Current Weight (lbs) 79.379 kg Weight (Calculated Kilograms) 79.4 Weight (Calculated Grams) 61426.7 [place] Body Weight 110 Body Mass Index (BMI) 32.0 GI Symptoms Last BM 03/13 Skin Integrity/Comment: intact Current %PO Good (75-100%) Estimated Nutritional Goals Calories/Kcals/Kg 25-30 Kcals Calculated 1522-8256 Protein g/k-1.2 Protein Calculated 57-68 Fluid: ml 1425-1710ml (1ml/kcal) Nutritional Problem No current Nutrition Prob Problem N/A Malnutrition Alert Is there a minimum of two criteria No selected? Query Text:Check all the applicable criteria. A minimum of two criteria are recommended for diagnosis of either severe or non-severe malnutrition. Malnutrition Related to Morbid Obesity Malnutrition related to morbid obesity No Intervention/Recommendation Comments 1. Continue with mech soft chopped cardiac diet as ordered. 2. Monitor PO intake, wt, labs and skin integrity 3. F/U as low risk in 7 days, 03/21 Expected Outcomes/Goals Expected Outcomes/Goals 1. PO intake to meet at least 75% of nutritional needs. 2. Wt stability, skin to remain intact, labs to approach WNL.
--- NOTE | 2018-03-15 20:09 | Progress Notes ---
DATE: 03/15/2018 Case was discussed with staff of the patient, reviewed records. The patient continues to be easily agitated, irritable, paranoid. Continues to have poor insight, unable to make safe plan for self-care. Continues to be unpredictable and impulsive. No side effects with the medication, no sedation, no nausea, demented, confused. She is on the Seroquel 100 mg 3 times a day, Depakote 250 mg 3 times a day with no side effects, no sedation, no nausea and no extrapyramidal symptoms. We will continue to work with the patient in group therapy, milieu therapy, adjust the medication as needed. JOB# [id number]
[2018-03-16] MEDS: Multivitamin Tab PO SCH (10:00)
--- NOTE | 2018-03-17 03:24 | Progress Notes ---
DATE: 03/16/2018 SUBJECTIVE: Staff was spoken to. The patient is interviewed. Mood is noted to be irritable. Affect is constricted. The patient has been getting easily irritable. The patient is looking at other male patients and then stating that each one of them is her . The patient is not able to make any sense. The patient has been screaming and yelling and needs to be redirected. The patient is currently on Seroquel 100 mg 3 times a day and has been able to tolerate the medication. The patient is placed on the Depakote, which was given 250 mg 3 times a day and the patient is going to be closely monitored and followed up with the supportive therapy. The patient is not ready to be discharged to a lower level of care because of her psychosis and aggression. JOB# [id number]
[2018-03-17] MEDS: Multivitamin Tab PO SCH (08:13)
--- NOTE | 2018-03-17 22:51 | Progress Notes ---
DATE: 03/17/2018 PSYCHIATRIC PROGRESS NOTE SUBJECTIVE: Staff was spoken to. The patient is interviewed. Mood is noted to be irritable. Affect is constricted. Coping skills are noted to be poor. Insight and judgment also noted to be limited. The patient has been refusing to comply with the medication and hence it is decided to start the patient with Haldol with an idea to give the Haldol Decanoate. ASSESSMENT: The patient is still paranoid and is reluctant to comply with the medication. PLAN: To make these changes and follow the patient with the supportive therapy. JOB# [id number]
--- NOTE | 2018-03-17 23:19 | Progress Notes ---
DATE: 03/17/2018 SUBJECTIVE: The patient was seen in her room. The patient is asleep, but easily arousable. The patient is a poor historian due to medical condition, appears to be guarded and easily gets agitated. Otherwise, the patient is currently in no acute distress. OBJECTIVE: VITAL SIGNS: Temperature 97.9, heart rate 65, blood pressure 147/65, respirations 20 and 96% on room air. HEENT: Head is atraumatic and normocephalic. Eyes: Bilateral conjunctivae are clear. Bilateral pupils are equally round and reactive. NECK: Supple. No JVD. CARDIOVASCULAR: S1 and S2 without murmur. PULMONARY: Clear to auscultation. GASTROINTESTINAL: Soft and nontender without guarding. Positive bowel sounds. MUSCULOSKELETAL: No clubbing. No cyanosis noted. ASSESSMENT: 1. Dementia. 2. Osteoarthritis. PLAN: We will keep the patient inpatient to Psychiatric unit and we will follow up with a psychiatrist to monitor the patient's condition and behavior. Treatment plans were discussed with the patient's nurse. Treatment plans were discussed with Dr. Pereyra. JOB# [id number]
[2018-03-18] MEDS: Multivitamin Tab PO SCH (08:06)
--- NOTE | 2018-03-18 11:22 | General Progress Note ---
Subjective - Review of Systems Events since last encounter: patient still paranoid irritable Objective - Results Result Diagrams: 03/09/18 13:46 03/09/18 13:46 Recent Labs: Laboratory Last Values WBC 5.7 Th/cmm (4.8-10.8) 03/09/18 13:46 RBC 3.64 Mil/cmm (3.80-5.20) L 03/09/18 13:46 Hgb 11.3 gm/dL (12-16) L 03/09/18 13:46 Hct 33.7 % (41.0-60) L 03/09/18 13:46 MCV 92.6 fl (81-100) 03/09/18 13:46 MCH 31.1 pg (27.0-31.0) H 03/09/18 13:46 MCHC Differential 33.6 pg (28.0-36.0) 03/09/18 13:46 RDW 13.7 % (11.5-20.0) 03/09/18 13:46 Plt Count 158 Th/cmm (150-400) 03/09/18 13:46 MPV 10.0 fl 03/09/18 13:46 Neutrophils % 59.0 % (40.0-80.0) 03/09/18 13:46 Lymphocytes % 29.9 % (20.0-50.0) 03/09/18 13:46 Monocytes % 8.6 % (2.0-10.0) 03/09/18 13:46 Eosinophils % 2.1 % (0.0-5.0) 03/09/18 13:46 Basophils % 0.4 % (0.0-2.0) 03/09/18 13:46 PT 10.3 SECONDS (9.5-11.5) 03/09/18 13:46 INR 0.99 (0.5-1.4) 03/09/18 13:46 PTT (Actin FS) 26.2 SECONDS (26.0-38.0) 03/09/18 13:46 Sodium 142 mEq/L (136-145) 03/09/18 13:46 Potassium 3.7 mEq/L (3.5-5.1) 03/09/18 13:46 Chloride 109 mEq/L (98-107) H 03/09/18 13:46 Carbon Dioxide 24.4 mEq/L (21.0-31.0) 03/09/18 13:46 Anion Gap 12.3 (7.0-16.0) 03/09/18 13:46 BUN 38 mg/dL (7-25) H 03/09/18 13:46 Creatinine 1.2 mg/dL (0.6-1.2) 03/09/18 13:46 Est GFR ( Amer) TNP 03/09/18 13:46 Est GFR (Non-Af Amer) TNP 03/09/18 13:46 BUN/Creatinine Ratio 31.7 03/09/18 13:46 Glucose 107 mg/dL (70-105) H 03/09/18 13:46 Calcium 8.9 mg/dL (8.6-10.3) 03/09/18 13:46 Phosphorus 3.1 mg/dL (2.5-5.0) 03/09/18 13:46 Magnesium 2.2 mg/dL (1.9-2.7) 03/09/18 13:46 Total Bilirubin 0.4 mg/dL (0.3-1.0) 03/09/18 13:46 AST 30 U/L (13-39) 03/09/18 13:46 ALT 30 U/L (7-52) 03/09/18 13:46 Alkaline Phosphatase 75 U/L (34-104) 03/09/18 13:46 Total Protein 5.9 gm/dL (6.0-8.3) L 03/09/18 13:46 Albumin 3.7 gm/dL (3.7-5.3) 03/09/18 13:46 Globulin 2.2 gm/dL 03/09/18 13:46 Albumin/Globulin Ratio 1.7 (1.0-1.8) 03/09/18 13:46 TSH 4.46 uIU/ml (0.34-5.60) 03/09/18 13:46 Urine Source CLEAN C 03/09/18 14:50 Urine Color YELLOW 03/09/18 14:50 Urine Clarity CLEAR (CLEAR) 03/09/18 14:50 Urine pH 7.5 (4.6 - 8.0) 03/09/18 14:50 Ur Specific [place] 1.015 (1.005-1.030) 03/09/18 14:50 Urine Protein NEGATIVE mg/dL (NEGATIVE) 03/09/18 14:50 Urine Glucose (UA) NEGATIVE mg/dL (NEGATIVE) 03/09/18 14:50 Urine Ketones NEGATIVE mg/dL (NEGATIVE) 03/09/18 14:50 Urine Blood MODERATE (NEGATIVE) H 03/09/18 14:50 Urine Nitrate NEGATIVE (NEGATIVE) 03/09/18 14:50 Urine Bilirubin NEGATIVE (NEGATIVE) 03/09/18 14:50 Urine Urobilinogen 0.2 E.U./dL (0.2 - 1.0) 03/09/18 14:50 Ur Leukocyte Esterase NEGATIVE (NEGATIVE) 03/09/18 14:50 Urine RBC 10-25 /hpf (0-5) H 03/09/18 14:50 Urine WBC 2-5 /hpf (0-5) 03/09/18 14:50 Ur Epithelial Cells FEW /lpf (FEW) 03/09/18 14:50 Urine Bacteria FEW /hpf (NONE SEEN) 03/09/18 14:50 Urine Opiates Screen NEGATIVE (NEGATIVE) 03/09/18 14:50 Urine Methadone Screen NEGATIVE (NEGATIVE) 03/09/18 14:50 Ur Barbiturates Screen NEGATIVE (NEGATIVE) 03/09/18 14:50 Valproic Acid 41.3 ug/mL (50.0-100.0) L 03/09/18 13:46 Ur Tricyclics Screen POSITIVE (NEGATIVE) H 03/09/18 14:50 Ur Phencyclidine Scrn NEGATIVE (NEGATIVE) 03/09/18 14:50 Amphetamines Screen NEGATIVE (NEGATIVE) 03/09/18 14:50 U Methamphetamines Scrn NEGATIVE (NEGATIVE) 03/09/18 14:50 U Benzodiazepines Scrn NEGATIVE (NEGATIVE) 03/09/18 14:50 U Cocaine Metab Screen NEGATIVE (NEGATIVE) 03/09/18 14:50 U Cannabinoids Screen NEGATIVE (NEGATIVE) 03/09/18 14:50 - Physical Exam Vitals and I&O: Vital Signs Temp 97.8 F 03/17/18 15:03 Pulse 70 03/18/18 05:29 Resp 18 03/18/18 05:29 BP 159/91 03/18/18 05:29 Pulse Ox 98 03/18/18 05:29 Intake & Output 03/17/18 03/18/1803/18/18 18:59 06:59 18:59 Intake Total 120 Balance 120 Intake: Oral 120 Other: # Voids 3 Stool Characteristics Soft Soft Soft Formed Formed Formed Active Medications: Current Medications Acetaminophen (Tylenol) 650 mg PO Q4HR PRN PRN Reason: Mild Pain / Temp above 100 Stop: 05/08/18 18:19 Al Hydrox/Mg Hydrox/Simethicone (Maalox) 30 ml PO Q4HR PRN PRN Reason: GI DISTRESS Stop: 05/08/18 18:19 Divalproex Sodium (Depakote Dr) 250 mg PO TID [facility]; Protocol Stop: 05/09/18 08:59 Last Admin: 03/18/18 08:06 Dose: 250 mg Haloperidol (Haldol) 1 mg PO BID [facility]; Protocol Stop: 05/16/18 16:59 Last Admin: 03/18/18 08:06 Dose: 1 mg Lorazepam (Ativan) 1 mg PO TID PRN; Protocol PRN Reason: Anxiety Stop: 05/09/18 00:21 Last Admin: 03/17/18 08:13 Dose: 1 mg Magnesium Hydroxide (Milk Of Magnesia) 30 ml PO HS PRN PRN Reason: Constipation Memantine (Namenda) 5 mg PO DAILY [facility] Stop: 05/10/18 08:59 Last Admin: 03/18/18 08:06 Dose: 5 mg Multivitamins/Vitamin C (Theragran) 1 tab PO DAILY RICHARD Stop: 05/09/18 08:59 Last Admin: 03/18/18 08:06 Dose: 1 tab Quetiapine Fumarate (Seroquel) 100 mg PO TID [facility]; Protocol Stop: 05/09/18 08:59 Last Admin: 03/18/18 08:06 Dose: 100 mg Zolpidem Tartrate (Ambien) 5 mg PO HS PRN PRN Reason: Insomnia Stop: 05/08/18 18:19 Last Admin: 03/10/18 23:50 Dose: 5 mg General: No acute distress HEENT: Atraumatic Neck: Supple Cardiovascular: Regular rate, Normal S1, Normal S2 Lungs: Clear to auscultation Assessment/Plan - Problem List Patient Problems: All Active Problems LEFT FACIAL AND L ARM REDNESS (Acute) - Plan Plan: as per psych Nutritional Asmnt/Malnutr-PDOC - Dietary Evaluation Malnutrition Findings (Please click <Entered> for more info): Nutritional Asmnt/Malnutrition Start: 03/14/18 14: 47 Text: Status: Complete Freq: Protocol: Document 03/14/18 14:47 TATYANAJOEY (Rec: 03/14/18 14:59 [email or web address] [email or web address]) Nutritional Asmnt/Malnutrition Patient General Information Nutritional Screening Moderate Risk Diagnosis psychosis Pertinent Medical Hx/Surgical Hx OA Subjective Information pt seen sitting in gomez-chair having lunch by herself. Per EMR, PO intake 100% of meals. Current Diet Order/ Nutrition Support cardiac mech soft chopped Pertinent Medications theragran, seroquel Pertinent Labs 03/09 Cl 109, BUN 38, glucose 107 Nutritional Hx/Data Height 1.57 m Height (Calculated Centimeters) 157.5 Current Weight (lbs) 79.379 kg Weight (Calculated Kilograms) 79.4 Weight (Calculated Grams) 77941.7 [place] Body Weight 110 Body Mass Index (BMI) 32.0 GI Symptoms Last BM 03/13 Skin Integrity/Comment: intact Current %PO Good (75-100%) Estimated Nutritional Goals Calories/Kcals/Kg 25-30 Kcals Calculated 4662-3157 Protein g/k-1.2 Protein Calculated 57-68 Fluid: ml 1425-1710ml (1ml/kcal) Nutritional Problem No current Nutrition Prob Problem N/A Malnutrition Alert Is there a minimum of two criteria No selected? Query Text:Check all the applicable criteria. A minimum of two criteria are recommended for diagnosis of either severe or non-severe malnutrition. Malnutrition Related to Morbid Obesity Malnutrition related to morbid obesity No Intervention/Recommendation Comments 1. Continue with mech soft chopped cardiac diet as ordered. 2. Monitor PO intake, wt, labs and skin integrity 3. F/U as low risk in 7 days, 03/21 Expected Outcomes/Goals Expected Outcomes/Goals 1. PO intake to meet at least 75% of nutritional needs. 2. Wt stability, skin to remain intact, labs to approach WNL.
--- NOTE | 2018-03-19 01:22 | Progress Notes ---
DATE: 03/18/2018 PSYCHIATRIC PROGRESS NOTE Staff was spoken to. The patient is interviewed. Mood is noted to be irritable. Affect is constricted. Insight and judgment are noted to be still impaired. Impulse control is noted to be poor. Coping skills are noted to be very poor. The patient has been having difficult time to cope with the stress. No side effects to the medications are noted. The patient has been still getting easily irritable and angry and no aggressive behavior is reported today. The patient has been able to tolerate both the haloperidol and Seroquel. The patient has not been able to be contained with one antipsychotic medication and hence second one has to be used with a hope that this can be tapered off on an outpatient basis. JOB# [id number]
[2018-03-19] MEDS: Multivitamin Tab PO SCH (09:06)
--- NOTE | 2018-03-19 11:40 | Consultation ---
DATE OF CONSULTATION: 03/17/2018 REFERRING PHYSICIAN: Dat Andrade MD TYPE OF CONSULTATION: Psychology. HISTORY OF PRESENT ILLNESS: The following is by review of the medical record and by patient self report. The patient is a 77-year-old female. The patient is being admitted due to agitated and aggressive behaviors. The staff at the patient's facility, which is [facility] have reported the patient was slamming windows and doors and hitting gonzales as well as pacing with persistent anger outbursts. Upon interview, the patient states that she believes the female staff and residents were jealous of her because their husbands were taking pictures of her. The patient is agitated and yelling. The patient is refusing medications and is uncontainable. The patient has been refusing care as well as refusing medications on the unit. The patient was transferred from another Psychiatry Service to Dr. Andrade's service and a consultation with this provider was requested. The patient did not answer questions about suicidal ideation. The patient is stating very clearly to this newswriter that she does not want to be bothered. PAST MEDICAL HISTORY: Please see history and physical. PAST PSYCHIATRIC HISTORY: The patient has a history of dementia. The patient is being seen by psychiatrist at her facility according to the record. SUBSTANCE ABUSE HISTORY: The patient did not answer this question. PSYCHOSOCIAL HISTORY: The patient's daughterNel is very involved in her care. The following is by record review because the patient did not answer these questions. The patient has three children. The patient stated that she lives with her children; however, she is a resident of [facility]. No occupational or educational history provided. No baptism affiliation stated. MENTAL STATUS EXAMINATION: The patient appears to be her stated age. The patient's attitude is uncooperative. Speech is loud and with intermittent yelling episodes. Mood is agitated and angry. Affect is mood congruent. Eye contact is poor. Thought process shows to be confused. The patient denied any suicidal ideation by shaking her head. The patient did not answer questions about homicidal ideation. The patient did not answer questions about experiencing auditory or visual hallucinations. The patient's behavior is difficult to redirect as well as unpredictable on the unit. The patient has been refusing care as well as medications. Impulse control is inadequate. Concentration is poor. The patient did not participate in the memory assessment. Sensorium is alert and oriented to self only. The patient did not participate in the interpretation of proverbs. Insight is impaired. Judgment is impaired. DIAGNOSTIC IMPRESSION: AXIS I: 1. History of dementia with behavioral disturbance. 2. Provisional diagnosis of psychotic disorder, not otherwise specified. AXIS II: Deferred. AXIS III: Please see history and physical. TREATMENT PLAN: The patient has been under the care of Dr. Kirk as the admitting psychiatrist. The patient's Psychiatry Service was transferred to Dr. Andrade by request of the patient's daughter. This newswriter was requested to provide consultation upon transfer to Dr. Andrade. The patient continues to be agitated and delusional as well as striking out behaviors are noted. We will provide supportive psychotherapy to include reality orientation, differentiation and integration. We will provide de-escalation and limit setting. We will encourage the patient as well as provide motivational enhancement for the patient to become compliant and stay compliant with all aspects of her care and treatment. We will encourage the patient to be able to demonstrate emotional and self-regulation prior to her discharge. We will provide coping strategies for phase of life issues. At this time, the patient has had 2 rounds of emergency medicine. Please see the medical records. The patient continues to be confused, disoriented as well as agitated and irritable. Thank you for this consult and the opportunity to participate in this patient's care. JOB# [id number] LEW
--- NOTE | 2018-03-19 15:23 | General Progress Note ---
Subjective - Review of Systems Events since last encounter: patient is paranoid irritable Objective - Results Result Diagrams: 03/09/18 13:46 03/09/18 13:46 Recent Labs: Laboratory Last Values WBC 5.7 Th/cmm (4.8-10.8) 03/09/18 13:46 RBC 3.64 Mil/cmm (3.80-5.20) L 03/09/18 13:46 Hgb 11.3 gm/dL (12-16) L 03/09/18 13:46 Hct 33.7 % (41.0-60) L 03/09/18 13:46 MCV 92.6 fl (81-100) 03/09/18 13:46 MCH 31.1 pg (27.0-31.0) H 03/09/18 13:46 MCHC Differential 33.6 pg (28.0-36.0) 03/09/18 13:46 RDW 13.7 % (11.5-20.0) 03/09/18 13:46 Plt Count 158 Th/cmm (150-400) 03/09/18 13:46 MPV 10.0 fl 03/09/18 13:46 Neutrophils % 59.0 % (40.0-80.0) 03/09/18 13:46 Lymphocytes % 29.9 % (20.0-50.0) 03/09/18 13:46 Monocytes % 8.6 % (2.0-10.0) 03/09/18 13:46 Eosinophils % 2.1 % (0.0-5.0) 03/09/18 13:46 Basophils % 0.4 % (0.0-2.0) 03/09/18 13:46 PT 10.3 SECONDS (9.5-11.5) 03/09/18 13:46 INR 0.99 (0.5-1.4) 03/09/18 13:46 PTT (Actin FS) 26.2 SECONDS (26.0-38.0) 03/09/18 13:46 Sodium 142 mEq/L (136-145) 03/09/18 13:46 Potassium 3.7 mEq/L (3.5-5.1) 03/09/18 13:46 Chloride 109 mEq/L (98-107) H 03/09/18 13:46 Carbon Dioxide 24.4 mEq/L (21.0-31.0) 03/09/18 13:46 Anion Gap 12.3 (7.0-16.0) 03/09/18 13:46 BUN 38 mg/dL (7-25) H 03/09/18 13:46 Creatinine 1.2 mg/dL (0.6-1.2) 03/09/18 13:46 Est GFR ( Amer) TNP 03/09/18 13:46 Est GFR (Non-Af Amer) TNP 03/09/18 13:46 BUN/Creatinine Ratio 31.7 03/09/18 13:46 Glucose 107 mg/dL (70-105) H 03/09/18 13:46 Calcium 8.9 mg/dL (8.6-10.3) 03/09/18 13:46 Phosphorus 3.1 mg/dL (2.5-5.0) 03/09/18 13:46 Magnesium 2.2 mg/dL (1.9-2.7) 03/09/18 13:46 Total Bilirubin 0.4 mg/dL (0.3-1.0) 03/09/18 13:46 AST 30 U/L (13-39) 03/09/18 13:46 ALT 30 U/L (7-52) 03/09/18 13:46 Alkaline Phosphatase 75 U/L (34-104) 03/09/18 13:46 Total Protein 5.9 gm/dL (6.0-8.3) L 03/09/18 13:46 Albumin 3.7 gm/dL (3.7-5.3) 03/09/18 13:46 Globulin 2.2 gm/dL 03/09/18 13:46 Albumin/Globulin Ratio 1.7 (1.0-1.8) 03/09/18 13:46 TSH 4.46 uIU/ml (0.34-5.60) 03/09/18 13:46 Urine Source CLEAN C 03/09/18 14:50 Urine Color YELLOW 03/09/18 14:50 Urine Clarity CLEAR (CLEAR) 03/09/18 14:50 Urine pH 7.5 (4.6 - 8.0) 03/09/18 14:50 Ur Specific [place] 1.015 (1.005-1.030) 03/09/18 14:50 Urine Protein NEGATIVE mg/dL (NEGATIVE) 03/09/18 14:50 Urine Glucose (UA) NEGATIVE mg/dL (NEGATIVE) 03/09/18 14:50 Urine Ketones NEGATIVE mg/dL (NEGATIVE) 03/09/18 14:50 Urine Blood MODERATE (NEGATIVE) H 03/09/18 14:50 Urine Nitrate NEGATIVE (NEGATIVE) 03/09/18 14:50 Urine Bilirubin NEGATIVE (NEGATIVE) 03/09/18 14:50 Urine Urobilinogen 0.2 E.U./dL (0.2 - 1.0) 03/09/18 14:50 Ur Leukocyte Esterase NEGATIVE (NEGATIVE) 03/09/18 14:50 Urine RBC 10-25 /hpf (0-5) H 03/09/18 14:50 Urine WBC 2-5 /hpf (0-5) 03/09/18 14:50 Ur Epithelial Cells FEW /lpf (FEW) 03/09/18 14:50 Urine Bacteria FEW /hpf (NONE SEEN) 03/09/18 14:50 Urine Opiates Screen NEGATIVE (NEGATIVE) 03/09/18 14:50 Urine Methadone Screen NEGATIVE (NEGATIVE) 03/09/18 14:50 Ur Barbiturates Screen NEGATIVE (NEGATIVE) 03/09/18 14:50 Valproic Acid 41.3 ug/mL (50.0-100.0) L 03/09/18 13:46 Ur Tricyclics Screen POSITIVE (NEGATIVE) H 03/09/18 14:50 Ur Phencyclidine Scrn NEGATIVE (NEGATIVE) 03/09/18 14:50 Amphetamines Screen NEGATIVE (NEGATIVE) 03/09/18 14:50 U Methamphetamines Scrn NEGATIVE (NEGATIVE) 03/09/18 14:50 U Benzodiazepines Scrn NEGATIVE (NEGATIVE) 03/09/18 14:50 U Cocaine Metab Screen NEGATIVE (NEGATIVE) 03/09/18 14:50 U Cannabinoids Screen NEGATIVE (NEGATIVE) 03/09/18 14:50 - Physical Exam Vitals and I&O: Vital Signs Temp 97.8 F 03/19/18 06:01 Pulse 68 03/19/18 06:01 Resp 19 03/19/18 06:01 BP 162/94 03/19/18 06:01 Pulse Ox 99 03/19/18 06:01 Intake & Output 03/18/18 03/19/1803/19/18 18:59 06:59 18:59 Intake Total 1200 300 Balance 1200 300 Weight (lbs) 79.379 kg Intake: Oral 1200 300 Other: # Voids 4 2 # Bowel Movements 0 0 Stool Characteristics Soft Soft Soft Formed Formed Formed Weight Source Bedscale Active Medications: Current Medications Acetaminophen (Tylenol) 650 mg PO Q4HR PRN PRN Reason: Mild Pain / Temp above 100 Stop: 05/08/18 18:19 Al Hydrox/Mg Hydrox/Simethicone (Maalox) 30 ml PO Q4HR PRN PRN Reason: GI DISTRESS Stop: 05/08/18 18:19 Divalproex Sodium (Depakote Dr) 250 mg PO TID [facility]; Protocol Stop: 05/09/18 08:59 Last Admin: 03/19/18 13:05 Dose: 250 mg Haloperidol (Haldol) 2 mg PO BID [facility]; Protocol Stop: 05/17/18 16:59 Last Admin: 03/19/18 09:06 Dose: 2 mg Lorazepam (Ativan) 1 mg PO TID PRN; Protocol PRN Reason: Anxiety Stop: 05/09/18 00:21 Last Admin: 03/19/18 13:06 Dose: 1 mg Magnesium Hydroxide (Milk Of Magnesia) 30 ml PO HS PRN PRN Reason: Constipation Memantine (Namenda) 5 mg PO DAILY [facility] Stop: 05/10/18 08:59 Last Admin: 03/19/18 09:06 Dose: 5 mg Multivitamins/Vitamin C (Theragran) 1 tab PO DAILY [facility] Stop: 05/09/18 08:59 Last Admin: 03/19/18 09:06 Dose: 1 tab Quetiapine Fumarate (Seroquel) 100 mg PO TID [facility]; Protocol Stop: 05/09/18 08:59 Last Admin: 03/19/18 13:06 Dose: 100 mg Zolpidem Tartrate (Ambien) 5 mg PO HS PRN PRN Reason: Insomnia Stop: 05/08/18 18:19 Last Admin: 03/10/18 23:50 Dose: 5 mg General: No acute distress HEENT: Atraumatic Neck: Supple Cardiovascular: Regular rate, Normal S1, Normal S2 Lungs: Clear to auscultation Assessment/Plan - Problem List Patient Problems: All Active Problems LEFT FACIAL AND L ARM REDNESS (Acute) - Plan Plan: as per psych Nutritional Asmnt/Malnutr-PDOC - Dietary Evaluation Malnutrition Findings (Please click <Entered> for more info): Nutritional Asmnt/Malnutrition Start: 03/14/18 14: 47 Text: Status: Complete Freq: Protocol: Document 03/14/18 14:47 LCAZULG (Rec: 03/14/18 14:59 [email or web address] [email or web address]) Nutritional Asmnt/Malnutrition Patient General Information Nutritional Screening Moderate Risk Diagnosis psychosis Pertinent Medical Hx/Surgical Hx OA Subjective Information pt seen sitting in gomez-chair having lunch by herself. Per EMR, PO intake 100% of meals. Current Diet Order/ Nutrition Support cardiac mec soft chopped Pertinent Medications theragran, seroquel Pertinent Labs 03/09 Cl 109, BUN 38, glucose 107 Nutritional Hx/Data Height 1.57 m Height (Calculated Centimeters) 157.5 Current Weight (lbs) 79.379 kg Weight (Calculated Kilograms) 79.4 Weight (Calculated Grams) 16840.7 [place] Body Weight 110 Body Mass Index (BMI) 32.0 GI Symptoms Last BM 03/13 Skin Integrity/Comment: intact Current %PO Good (75-100%) Estimated Nutritional Goals Calories/Kcals/Kg 25-30 Kcals Calculated 6656-5942 Protein g/k-1.2 Protein Calculated 57-68 Fluid: ml 1425-1710ml (1ml/kcal) Nutritional Problem No current Nutrition Prob Problem N/A Malnutrition Alert Is there a minimum of two criteria No selected? Query Text:Check all the applicable criteria. A minimum of two criteria are recommended for diagnosis of either severe or non-severe malnutrition. Malnutrition Related to Morbid Obesity Malnutrition related to morbid obesity No Intervention/Recommendation Comments 1. Continue with [facility] soft chopped cardiac diet as ordered. 2. Monitor PO intake, wt, labs and skin integrity 3. F/U as low risk in 7 days, 03/21 Expected Outcomes/Goals Expected Outcomes/Goals 1. PO intake to meet at least 75% of nutritional needs. 2. Wt stability, skin to remain intact, labs to approach WNL.
--- NOTE | 2018-03-20 03:37 | Progress Notes ---
DATE: 03/19/2018 PSYCHIATRIC PROGRESS NOTE SUBJECTIVE: Staff was spoken to. The patient is interviewed. Mood is noted to be irritable. Affect is constricted. The patient's insight and judgment are noted to be still impaired. Impulse control is noted to be limited. Coping skills are noted to be limited. The patient is very confused at this time and is not making much sense as the patient has been very groggy, but the aggression seems to be coming under control. ASSESSMENT: The patient is still demented and psychotic. PLAN: To change the Seroquel to 100 mg twice a day and continue the patient with the haloperidol and follow the patient with supportive therapy. The patient is not ready to be discharged to a lower level of care because of her psychosis. JOB# [id number]
[2018-03-20] MEDS: Multivitamin Tab PO SCH (10:19)
--- NOTE | 2018-03-20 19:54 | Internal Medicine Prog Note ---
Internal Medicine Subjective - Subjective Service Date: 03/20/18 Patient seen and examined:: without staff Patient is:: awake, confused Per staff patient has:: tolerating meds Internal Medicine Objective - Results Result Diagrams: 03/09/18 13:46 03/09/18 13:46 Recent Labs: Laboratory Last Values WBC 5.7 Th/cmm (4.8-10.8) 03/09/18 13:46 RBC 3.64 Mil/cmm (3.80-5.20) L 03/09/18 13:46 Hgb 11.3 gm/dL (12-16) L 03/09/18 13:46 Hct 33.7 % (41.0-60) L 03/09/18 13:46 MCV 92.6 fl (81-100) 03/09/18 13:46 MCH 31.1 pg (27.0-31.0) H 03/09/18 13:46 MCHC Differential 33.6 pg (28.0-36.0) 03/09/18 13:46 RDW 13.7 % (11.5-20.0) 03/09/18 13:46 Plt Count 158 Th/cmm (150-400) 03/09/18 13:46 MPV 10.0 fl 03/09/18 13:46 Neutrophils % 59.0 % (40.0-80.0) 03/09/18 13:46 Lymphocytes % 29.9 % (20.0-50.0) 03/09/18 13:46 Monocytes % 8.6 % (2.0-10.0) 03/09/18 13:46 Eosinophils % 2.1 % (0.0-5.0) 03/09/18 13:46 Basophils % 0.4 % (0.0-2.0) 03/09/18 13:46 PT 10.3 SECONDS (9.5-11.5) 03/09/18 13:46 INR 0.99 (0.5-1.4) 03/09/18 13:46 PTT (Actin FS) 26.2 SECONDS (26.0-38.0) 03/09/18 13:46 Sodium 142 mEq/L (136-145) 03/09/18 13:46 Potassium 3.7 mEq/L (3.5-5.1) 03/09/18 13:46 Chloride 109 mEq/L (98-107) H 03/09/18 13:46 Carbon Dioxide 24.4 mEq/L (21.0-31.0) 03/09/18 13:46 Anion Gap 12.3 (7.0-16.0) 03/09/18 13:46 BUN 38 mg/dL (7-25) H 03/09/18 13:46 Creatinine 1.2 mg/dL (0.6-1.2) 03/09/18 13:46 Est GFR ( Amer) TNP 03/09/18 13:46 Est GFR (Non-Af Amer) TNP 03/09/18 13:46 BUN/Creatinine Ratio 31.7 03/09/18 13:46 Glucose 107 mg/dL (70-105) H 03/09/18 13:46 Calcium 8.9 mg/dL (8.6-10.3) 03/09/18 13:46 Phosphorus 3.1 mg/dL (2.5-5.0) 03/09/18 13:46 Magnesium 2.2 mg/dL (1.9-2.7) 03/09/18 13:46 Total Bilirubin 0.4 mg/dL (0.3-1.0) 03/09/18 13:46 AST 30 U/L (13-39) 03/09/18 13:46 ALT 30 U/L (7-52) 03/09/18 13:46 Alkaline Phosphatase 75 U/L (34-104) 03/09/18 13:46 Total Protein 5.9 gm/dL (6.0-8.3) L 03/09/18 13:46 Albumin 3.7 gm/dL (3.7-5.3) 03/09/18 13:46 Globulin 2.2 gm/dL 03/09/18 13:46 Albumin/Globulin Ratio 1.7 (1.0-1.8) 03/09/18 13:46 TSH 4.46 uIU/ml (0.34-5.60) 03/09/18 13:46 Urine Source CLEAN C 03/09/18 14:50 Urine Color YELLOW 03/09/18 14:50 Urine Clarity CLEAR (CLEAR) 03/09/18 14:50 Urine pH 7.5 (4.6 - 8.0) 03/09/18 14:50 Ur Specific [place] 1.015 (1.005-1.030) 03/09/18 14:50 Urine Protein NEGATIVE mg/dL (NEGATIVE) 03/09/18 14:50 Urine Glucose (UA) NEGATIVE mg/dL (NEGATIVE) 03/09/18 14:50 Urine Ketones NEGATIVE mg/dL (NEGATIVE) 03/09/18 14:50 Urine Blood MODERATE (NEGATIVE) H 03/09/18 14:50 Urine Nitrate NEGATIVE (NEGATIVE) 03/09/18 14:50 Urine Bilirubin NEGATIVE (NEGATIVE) 03/09/18 14:50 Urine Urobilinogen 0.2 E.U./dL (0.2 - 1.0) 03/09/18 14:50 Ur Leukocyte Esterase NEGATIVE (NEGATIVE) 03/09/18 14:50 Urine RBC 10-25 /hpf (0-5) H 03/09/18 14:50 Urine WBC 2-5 /hpf (0-5) 03/09/18 14:50 Ur Epithelial Cells FEW /lpf (FEW) 03/09/18 14:50 Urine Bacteria FEW /hpf (NONE SEEN) 03/09/18 14:50 Urine Opiates Screen NEGATIVE (NEGATIVE) 03/09/18 14:50 Urine Methadone Screen NEGATIVE (NEGATIVE) 03/09/18 14:50 Ur Barbiturates Screen NEGATIVE (NEGATIVE) 03/09/18 14:50 Valproic Acid 41.3 ug/mL (50.0-100.0) L 03/09/18 13:46 Ur Tricyclics Screen POSITIVE (NEGATIVE) H 03/09/18 14:50 Ur Phencyclidine Scrn NEGATIVE (NEGATIVE) 03/09/18 14:50 Amphetamines Screen NEGATIVE (NEGATIVE) 03/09/18 14:50 U Methamphetamines Scrn NEGATIVE (NEGATIVE) 03/09/18 14:50 U Benzodiazepines Scrn NEGATIVE (NEGATIVE) 03/09/18 14:50 U Cocaine Metab Screen NEGATIVE (NEGATIVE) 03/09/18 14:50 U Cannabinoids Screen NEGATIVE (NEGATIVE) 03/09/18 14:50 - Physical Exam Vitals and I&O: Vital Signs Temp 98.6 F 03/20/18 15:03 Pulse 72 03/20/18 15:03 Resp 20 03/20/18 15:03 BP 144/82 03/20/18 15:03 Pulse Ox 95 03/20/18 15:03 Intake & Output 03/20/18 03/20/18 03/21/18 06:59 18:59 06:59 Intake Total 240 950 Output Total 1 Balance 239 950 Weight (lbs) 175 lb Intake: Oral 240 950 Output: Urine/Stool Mix 1 Other: # Voids 3 4 # Bowel Movements 0 0 Stool Characteristics Soft Soft Formed Formed Weight Source Bedscale Active Medications: Current Medications Acetaminophen (Tylenol) 650 mg PO Q4HR PRN PRN Reason: Mild Pain / Temp above 100 Stop: 05/08/18 18:19 Al Hydrox/Mg Hydrox/Simethicone (Maalox) 30 ml PO Q4HR PRN PRN Reason: GI DISTRESS Stop: 05/08/18 18:19 Divalproex Sodium (Depakote Dr) 500 mg PO BID [facility]; Protocol Stop: 05/20/18 08:59 Haloperidol (Haldol) 2 mg PO BID [facility]; Protocol Stop: 05/17/18 16:59 Last Admin: 03/20/18 17:44 Dose: 2 mg Lorazepam (Ativan) 1 mg PO TID PRN; Protocol PRN Reason: Anxiety Stop: 05/09/18 00:21 Last Admin: 03/19/18 13:06 Dose: 1 mg Magnesium Hydroxide (Milk Of Magnesia) 30 ml PO HS PRN PRN Reason: Constipation Memantine (Namenda) 5 mg PO DAILY [facility] Stop: 05/10/18 08:59 Last Admin: 03/20/18 10:18 Dose: Not Given Multivitamins/Vitamin C (Theragran) 1 tab PO DAILY [facility] Stop: 05/09/18 08:59 Last Admin: 03/20/18 10:19 Dose: Not Given Quetiapine Fumarate (Seroquel) 100 mg PO BID [facility]; Protocol Stop: 05/19/18 08:59 Last Admin: 03/20/18 17:44 Dose: 100 mg Zolpidem Tartrate (Ambien) 5 mg PO HS PRN PRN Reason: Insomnia Stop: 05/08/18 18:19 Last Admin: 03/19/18 21:23 Dose: 5 mg General: alert HEENT: NC/AT Neck: Supple Lungs: CTAB Abdomen: soft, non-tender, non-distended Neurological: alert Internal Medicine Assmt/Plan - Assessment Assessment: oa dementia - Plan Plan: fall precautions continue current plan of care Nutritional Asmnt/Malnutr-PDOC - Dietary Evaluation Malnutrition Findings (Please click <Entered> for more info): Nutritional Asmnt/Malnutrition Start: 03/14/18 14: 47 Text: Status: Complete Freq: Protocol: Document 03/14/18 14:47 MELAG (Rec: 03/14/18 14:59 [email or web address]) Nutritional Asmnt/Malnutrition Patient General Information Nutritional Screening Moderate Risk Diagnosis psychosis Pertinent Medical Hx/Surgical Hx OA Subjective Information pt seen sitting in gomez-chair having lunch by herself. Per EMR, PO intake 100% of meals. Current Diet Order/ Nutrition Support cardiac mech soft chopped Pertinent Medications theragran, seroquel Pertinent Labs 03/09 Cl 109, BUN 38, glucose 107 Nutritional Hx/Data Height 5 ft 2 in Height (Calculated Centimeters) 157.5 Current Weight (lbs) 175 lb Weight (Calculated Kilograms) 79.4 Weight (Calculated Grams) 33721.7 [place] Body Weight 110 Body Mass Index (BMI) 32.0 GI Symptoms Last BM 03/13 Skin Integrity/Comment: intact Current %PO Good (75-100%) Estimated Nutritional Goals Calories/Kcals/Kg 25-30 Kcals Calculated 2600-1098 Protein g/k-1.2 Protein Calculated 57-68 Fluid: ml 1425-1710ml (1ml/kcal) Nutritional Problem No current Nutrition Prob Problem N/A Malnutrition Alert Is there a minimum of two criteria No selected? Query Text:Check all the applicable criteria. A minimum of two criteria are recommended for diagnosis of either severe or non-severe malnutrition. Malnutrition Related to Morbid Obesity Malnutrition related to morbid obesity No Intervention/Recommendation Comments 1. Continue with mech soft chopped cardiac diet as ordered. 2. Monitor PO intake, wt, labs and skin integrity 3. F/U as low risk in 7 days, 03/21 Expected Outcomes/Goals Expected Outcomes/Goals 1. PO intake to meet at least 75% of nutritional needs. 2. Wt stability, skin to remain intact, labs to approach WNL.
--- NOTE | 2018-03-20 23:56 | Progress Notes ---
DATE: 03/20/2018 PSYCHIATRIC PROGRESS NOTE SUBJECTIVE: Staff was spoken to. The patient is interviewed. Mood is noted to be irritable. Affect is constricted. The patient has been getting easily irritable and angry, but could be redirected and the patient has been currently on close monitoring. The patient has been getting verbally abusive whenever the staff has been trying to help her out. The patient's coping skills at this time are noted to be still limited and the patient is currently on 750 mg of the Depakote, which is going to be increased to 500 mg twice a day and the patient is going to be closely monitored. The patient has been having difficult time to cope with the stress. The patient is currently on the Seroquel 100 mg twice a day. ASSESSMENT: The patient is still impulsive and aggressive. PLAN: To continue the patient with the supportive therapy and encouraged the patient to verbalize the concerns rather than act out. JOB# [id number]
[2018-03-21] MEDS: Multivitamin Tab PO SCH (09:20)
--- NOTE | 2018-03-21 12:12 | General Progress Note ---
Subjective - Review of Systems Events since last encounter: patient is awake but confused Objective - Results Result Diagrams: 03/09/18 13:46 03/09/18 13:46 Recent Labs: Laboratory Last Values WBC 5.7 Th/cmm (4.8-10.8) 03/09/18 13:46 RBC 3.64 Mil/cmm (3.80-5.20) L 03/09/18 13:46 Hgb 11.3 gm/dL (12-16) L 03/09/18 13:46 Hct 33.7 % (41.0-60) L 03/09/18 13:46 MCV 92.6 fl (81-100) 03/09/18 13:46 MCH 31.1 pg (27.0-31.0) H 03/09/18 13:46 MCHC Differential 33.6 pg (28.0-36.0) 03/09/18 13:46 RDW 13.7 % (11.5-20.0) 03/09/18 13:46 Plt Count 158 Th/cmm (150-400) 03/09/18 13:46 MPV 10.0 fl 03/09/18 13:46 Neutrophils % 59.0 % (40.0-80.0) 03/09/18 13:46 Lymphocytes % 29.9 % (20.0-50.0) 03/09/18 13:46 Monocytes % 8.6 % (2.0-10.0) 03/09/18 13:46 Eosinophils % 2.1 % (0.0-5.0) 03/09/18 13:46 Basophils % 0.4 % (0.0-2.0) 03/09/18 13:46 PT 10.3 SECONDS (9.5-11.5) 03/09/18 13:46 INR 0.99 (0.5-1.4) 03/09/18 13:46 PTT (Actin FS) 26.2 SECONDS (26.0-38.0) 03/09/18 13:46 Sodium 142 mEq/L (136-145) 03/09/18 13:46 Potassium 3.7 mEq/L (3.5-5.1) 03/09/18 13:46 Chloride 109 mEq/L (98-107) H 03/09/18 13:46 Carbon Dioxide 24.4 mEq/L (21.0-31.0) 03/09/18 13:46 Anion Gap 12.3 (7.0-16.0) 03/09/18 13:46 BUN 38 mg/dL (7-25) H 03/09/18 13:46 Creatinine 1.2 mg/dL (0.6-1.2) 03/09/18 13:46 Est GFR ( Amer) TNP 03/09/18 13:46 Est GFR (Non-Af Amer) TNP 03/09/18 13:46 BUN/Creatinine Ratio 31.7 03/09/18 13:46 Glucose 107 mg/dL (70-105) H 03/09/18 13:46 Calcium 8.9 mg/dL (8.6-10.3) 03/09/18 13:46 Phosphorus 3.1 mg/dL (2.5-5.0) 03/09/18 13:46 Magnesium 2.2 mg/dL (1.9-2.7) 03/09/18 13:46 Total Bilirubin 0.4 mg/dL (0.3-1.0) 03/09/18 13:46 AST 30 U/L (13-39) 03/09/18 13:46 ALT 30 U/L (7-52) 03/09/18 13:46 Alkaline Phosphatase 75 U/L (34-104) 03/09/18 13:46 Total Protein 5.9 gm/dL (6.0-8.3) L 03/09/18 13:46 Albumin 3.7 gm/dL (3.7-5.3) 03/09/18 13:46 Globulin 2.2 gm/dL 03/09/18 13:46 Albumin/Globulin Ratio 1.7 (1.0-1.8) 03/09/18 13:46 TSH 4.46 uIU/ml (0.34-5.60) 03/09/18 13:46 Urine Source CLEAN C 03/09/18 14:50 Urine Color YELLOW 03/09/18 14:50 Urine Clarity CLEAR (CLEAR) 03/09/18 14:50 Urine pH 7.5 (4.6 - 8.0) 03/09/18 14:50 Ur Specific [place] 1.015 (1.005-1.030) 03/09/18 14:50 Urine Protein NEGATIVE mg/dL (NEGATIVE) 03/09/18 14:50 Urine Glucose (UA) NEGATIVE mg/dL (NEGATIVE) 03/09/18 14:50 Urine Ketones NEGATIVE mg/dL (NEGATIVE) 03/09/18 14:50 Urine Blood MODERATE (NEGATIVE) H 03/09/18 14:50 Urine Nitrate NEGATIVE (NEGATIVE) 03/09/18 14:50 Urine Bilirubin NEGATIVE (NEGATIVE) 03/09/18 14:50 Urine Urobilinogen 0.2 E.U./dL (0.2 - 1.0) 03/09/18 14:50 Ur Leukocyte Esterase NEGATIVE (NEGATIVE) 03/09/18 14:50 Urine RBC 10-25 /hpf (0-5) H 03/09/18 14:50 Urine WBC 2-5 /hpf (0-5) 03/09/18 14:50 Ur Epithelial Cells FEW /lpf (FEW) 03/09/18 14:50 Urine Bacteria FEW /hpf (NONE SEEN) 03/09/18 14:50 Urine Opiates Screen NEGATIVE (NEGATIVE) 03/09/18 14:50 Urine Methadone Screen NEGATIVE (NEGATIVE) 03/09/18 14:50 Ur Barbiturates Screen NEGATIVE (NEGATIVE) 03/09/18 14:50 Valproic Acid 41.3 ug/mL (50.0-100.0) L 03/09/18 13:46 Ur Tricyclics Screen POSITIVE (NEGATIVE) H 03/09/18 14:50 Ur Phencyclidine Scrn NEGATIVE (NEGATIVE) 03/09/18 14:50 Amphetamines Screen NEGATIVE (NEGATIVE) 03/09/18 14:50 U Methamphetamines Scrn NEGATIVE (NEGATIVE) 03/09/18 14:50 U Benzodiazepines Scrn NEGATIVE (NEGATIVE) 03/09/18 14:50 U Cocaine Metab Screen NEGATIVE (NEGATIVE) 03/09/18 14:50 U Cannabinoids Screen NEGATIVE (NEGATIVE) 03/09/18 14:50 - Physical Exam Vitals and I&O: Vital Signs Temp 0 F 03/21/18 06:29 Pulse 86 03/20/18 20:45 Resp 19 03/20/18 20:45 BP 130/76 03/20/18 20:45 Pulse Ox 96 03/20/18 20:45 Intake & Output 09/11/18 09/12/18 09/12/18 18:59 06:59 18:59 Intake Total 950 240 Balance 950 240 Weight (lbs) 79.379 kg Intake: Oral 950 240 Other: # Voids 4 3 # Bowel Movements 0 0 Stool Characteristics Soft Soft Formed Formed Weight Source Bedscale Active Medications: Current Medications Acetaminophen (Tylenol) 650 mg PO Q4HR PRN PRN Reason: Mild Pain / Temp above 100 Stop: 05/08/18 18:19 Al Hydrox/Mg Hydrox/Simethicone (Maalox) 30 ml PO Q4HR PRN PRN Reason: GI DISTRESS Stop: 05/08/18 18:19 Divalproex Sodium (Depakote Dr) 500 mg PO BID [facility]; Protocol Stop: 05/20/18 08:59 Haloperidol (Haldol) 2 mg PO BID [facility]; Protocol Stop: 05/17/18 16:59 Last Admin: 03/20/18 17:44 Dose: 2 mg Lorazepam (Ativan) 1 mg PO TID PRN; Protocol PRN Reason: Anxiety Stop: 05/09/18 00:21 Last Admin: 03/19/18 13:06 Dose: 1 mg Magnesium Hydroxide (Milk Of Magnesia) 30 ml PO HS PRN PRN Reason: Constipation Memantine (Namenda) 5 mg PO DAILY [facility] Stop: 05/10/18 08:59 Last Admin: 03/20/18 10:18 Dose: Not Given Multivitamins/Vitamin C (Theragran) 1 tab PO DAILY [facility] Stop: 05/09/18 08:59 Last Admin: 03/20/18 10:19 Dose: Not Given Quetiapine Fumarate (Seroquel) 100 mg PO BID [facility]; Protocol Stop: 05/19/18 08:59 Last Admin: 03/20/18 17:44 Dose: 100 mg Zolpidem Tartrate (Ambien) 5 mg PO HS PRN PRN Reason: Insomnia Stop: 05/08/18 18:19 Last Admin: 03/19/18 21:23 Dose: 5 mg General: No acute distress HEENT: Atraumatic Neck: Supple Cardiovascular: Regular rate, Normal S1, Normal S2 Lungs: Clear to auscultation Assessment/Plan - Problem List Patient Problems: All Active Problems Dementia (Acute) F03.90 LEFT FACIAL AND L ARM REDNESS (Acute) - Plan Plan: as per psych Nutritional Asmnt/Malnutr-PDOC - Dietary Evaluation Malnutrition Findings (Please click <Entered> for more info): Nutritional Asmnt/Malnutrition Start: 03/14/18 14: 47 Text: Status: Complete Freq: Protocol: Document 03/14/18 14:47 LCAZULG (Rec: 03/14/18 14:59 [email or web address] [email or web address]) Nutritional Asmnt/Malnutrition Patient General Information Nutritional Screening Moderate Risk Diagnosis psychosis Pertinent Medical Hx/Surgical Hx OA Subjective Information pt seen sitting in gomez-chair having lunch by herself. Per EMR, PO intake 100% of meals. Current Diet Order/ Nutrition Support cardiac mech soft chopped Pertinent Medications theragran, seroquel Pertinent Labs 03/09 Cl 109, BUN 38, glucose 107 Nutritional Hx/Data Height 1.57 m Height (Calculated Centimeters) 157.5 Current Weight (lbs) 79.379 kg Weight (Calculated Kilograms) 79.4 Weight (Calculated Grams) 61644.7 [place] Body Weight 110 Body Mass Index (BMI) 32.0 GI Symptoms Last BM 03/13 Skin Integrity/Comment: intact Current %PO Good (75-100%) Estimated Nutritional Goals Calories/Kcals/Kg 25-30 Kcals Calculated 4940-3017 Protein g/k-1.2 Protein Calculated 57-68 Fluid: ml 1425-1710ml (1ml/kcal) Nutritional Problem No current Nutrition Prob Problem N/A Malnutrition Alert Is there a minimum of two criteria No selected? Query Text:Check all the applicable criteria. A minimum of two criteria are recommended for diagnosis of either severe or non-severe malnutrition. Malnutrition Related to Morbid Obesity Malnutrition related to morbid obesity No Intervention/Recommendation Comments 1. Continue with mech soft chopped cardiac diet as ordered. 2. Monitor PO intake, wt, labs and skin integrity 3. F/U as low risk in 7 days, 03/21 Expected Outcomes/Goals Expected Outcomes/Goals 1. PO intake to meet at least 75% of nutritional needs. 2. Wt stability, skin to remain intact, labs to approach WNL.
--- NOTE | 2018-03-22 08:24 | Progress Notes ---
DATE: 03/21/2018 PSYCHIATRIC PROGRESS NOTE SUBJECTIVE: Staff was spoken to. The patient is interviewed. Mood is noted to be irritable. Affect is constricted. The patient is very disheveled. Insight and judgment, at this time, are noted to be still impaired. Impulse control is noted to be limited. No side effects to the medications are noted. ASSESSMENT: The patient is still paranoid. PLAN: To continue the patient with supportive therapy and follow up. JOB# [id number]
[2018-03-22] MEDS: Multivitamin Tab PO SCH (08:44)
--- NOTE | 2018-03-22 09:57 | General Progress Note ---
Subjective - Review of Systems Events since last encounter: patient irritable in no distress Objective - Results Result Diagrams: 03/09/18 13:46 03/09/18 13:46 Recent Labs: Laboratory Last Values WBC 5.7 Th/cmm (4.8-10.8) 03/09/18 13:46 RBC 3.64 Mil/cmm (3.80-5.20) L 03/09/18 13:46 Hgb 11.3 gm/dL (12-16) L 03/09/18 13:46 Hct 33.7 % (41.0-60) L 03/09/18 13:46 MCV 92.6 fl (81-100) 03/09/18 13:46 MCH 31.1 pg (27.0-31.0) H 03/09/18 13:46 MCHC Differential 33.6 pg (28.0-36.0) 03/09/18 13:46 RDW 13.7 % (11.5-20.0) 03/09/18 13:46 Plt Count 158 Th/cmm (150-400) 03/09/18 13:46 MPV 10.0 fl 03/09/18 13:46 Neutrophils % 59.0 % (40.0-80.0) 03/09/18 13:46 Lymphocytes % 29.9 % (20.0-50.0) 03/09/18 13:46 Monocytes % 8.6 % (2.0-10.0) 03/09/18 13:46 Eosinophils % 2.1 % (0.0-5.0) 03/09/18 13:46 Basophils % 0.4 % (0.0-2.0) 03/09/18 13:46 PT 10.3 SECONDS (9.5-11.5) 03/09/18 13:46 INR 0.99 (0.5-1.4) 03/09/18 13:46 PTT (Actin FS) 26.2 SECONDS (26.0-38.0) 03/09/18 13:46 Sodium 142 mEq/L (136-145) 03/09/18 13:46 Potassium 3.7 mEq/L (3.5-5.1) 03/09/18 13:46 Chloride 109 mEq/L (98-107) H 03/09/18 13:46 Carbon Dioxide 24.4 mEq/L (21.0-31.0) 03/09/18 13:46 Anion Gap 12.3 (7.0-16.0) 03/09/18 13:46 BUN 38 mg/dL (7-25) H 03/09/18 13:46 Creatinine 1.2 mg/dL (0.6-1.2) 03/09/18 13:46 Est GFR ( Amer) TNP 03/09/18 13:46 Est GFR (Non-Af Amer) TNP 03/09/18 13:46 BUN/Creatinine Ratio 31.7 03/09/18 13:46 Glucose 107 mg/dL (70-105) H 03/09/18 13:46 Calcium 8.9 mg/dL (8.6-10.3) 03/09/18 13:46 Phosphorus 3.1 mg/dL (2.5-5.0) 03/09/18 13:46 Magnesium 2.2 mg/dL (1.9-2.7) 03/09/18 13:46 Total Bilirubin 0.4 mg/dL (0.3-1.0) 03/09/18 13:46 AST 30 U/L (13-39) 03/09/18 13:46 ALT 30 U/L (7-52) 03/09/18 13:46 Alkaline Phosphatase 75 U/L (34-104) 03/09/18 13:46 Total Protein 5.9 gm/dL (6.0-8.3) L 03/09/18 13:46 Albumin 3.7 gm/dL (3.7-5.3) 03/09/18 13:46 Globulin 2.2 gm/dL 03/09/18 13:46 Albumin/Globulin Ratio 1.7 (1.0-1.8) 03/09/18 13:46 TSH 4.46 uIU/ml (0.34-5.60) 03/09/18 13:46 Urine Source CLEAN C 03/09/18 14:50 Urine Color YELLOW 03/09/18 14:50 Urine Clarity CLEAR (CLEAR) 03/09/18 14:50 Urine pH 7.5 (4.6 - 8.0) 03/09/18 14:50 Ur Specific [place] 1.015 (1.005-1.030) 03/09/18 14:50 Urine Protein NEGATIVE mg/dL (NEGATIVE) 03/09/18 14:50 Urine Glucose (UA) NEGATIVE mg/dL (NEGATIVE) 03/09/18 14:50 Urine Ketones NEGATIVE mg/dL (NEGATIVE) 03/09/18 14:50 Urine Blood MODERATE (NEGATIVE) H 03/09/18 14:50 Urine Nitrate NEGATIVE (NEGATIVE) 03/09/18 14:50 Urine Bilirubin NEGATIVE (NEGATIVE) 03/09/18 14:50 Urine Urobilinogen 0.2 E.U./dL (0.2 - 1.0) 03/09/18 14:50 Ur Leukocyte Esterase NEGATIVE (NEGATIVE) 03/09/18 14:50 Urine RBC 10-25 /hpf (0-5) H 03/09/18 14:50 Urine WBC 2-5 /hpf (0-5) 03/09/18 14:50 Ur Epithelial Cells FEW /lpf (FEW) 03/09/18 14:50 Urine Bacteria FEW /hpf (NONE SEEN) 03/09/18 14:50 Urine Opiates Screen NEGATIVE (NEGATIVE) 03/09/18 14:50 Urine Methadone Screen NEGATIVE (NEGATIVE) 03/09/18 14:50 Ur Barbiturates Screen NEGATIVE (NEGATIVE) 03/09/18 14:50 Valproic Acid 41.3 ug/mL (50.0-100.0) L 03/09/18 13:46 Ur Tricyclics Screen POSITIVE (NEGATIVE) H 03/09/18 14:50 Ur Phencyclidine Scrn NEGATIVE (NEGATIVE) 03/09/18 14:50 Amphetamines Screen NEGATIVE (NEGATIVE) 03/09/18 14:50 U Methamphetamines Scrn NEGATIVE (NEGATIVE) 03/09/18 14:50 U Benzodiazepines Scrn NEGATIVE (NEGATIVE) 03/09/18 14:50 U Cocaine Metab Screen NEGATIVE (NEGATIVE) 03/09/18 14:50 U Cannabinoids Screen NEGATIVE (NEGATIVE) 03/09/18 14:50 - Physical Exam Vitals and I&O: Vital Signs Temp 98.5 F 03/22/18 06:24 Pulse 69 03/22/18 06:24 Resp 20 03/22/18 06:24 BP 136/67 03/22/18 06:24 Pulse Ox 95 03/22/18 06:24 Intake & Output 03/21/18 03/22/1803/22/18 18:59 06:59 18:59 Intake Total 2150 240 Balance 2150 240 Weight (lbs) 79.379 kg Intake: Oral 2150 240 Other: # Voids 4 3 # Bowel Movements 1 1 Stool Characteristics Soft Soft Formed Formed Weight Source Bedscale Active Medications: Current Medications Acetaminophen (Tylenol) 650 mg PO Q4HR PRN PRN Reason: Mild Pain / Temp above 100 Stop: 05/08/18 18:19 Al Hydrox/Mg Hydrox/Simethicone (Maalox) 30 ml PO Q4HR PRN PRN Reason: GI DISTRESS Stop: 05/08/18 18:19 Divalproex Sodium (Depakote Dr) 500 mg PO BID [facility]; Protocol Stop: 05/20/18 08:59 Last Admin: 03/22/18 08:45 Dose: 500 mg Haloperidol (Haldol) 2 mg PO BID [facility]; Protocol Stop: 05/17/18 16:59 Last Admin: 03/22/18 08:45 Dose: 2 mg Lorazepam (Ativan) 1 mg PO TID PRN; Protocol PRN Reason: Anxiety Stop: 05/09/18 00:21 Last Admin: 03/19/18 13:06 Dose: 1 mg Magnesium Hydroxide (Milk Of Magnesia) 30 ml PO HS PRN PRN Reason: Constipation Memantine (Namenda) 5 mg PO DAILY RICHARD Stop: 05/10/18 08:59 Last Admin: 03/22/18 08:44 Dose: 5 mg Multivitamins/Vitamin C (Theragran) 1 tab PO DAILY RICHARD Stop: 05/09/18 08:59 Last Admin: 03/22/18 08:44 Dose: 1 tab Quetiapine Fumarate (Seroquel) 100 mg PO BID [facility]; Protocol Stop: 05/19/18 08:59 Last Admin: 03/22/18 08:44 Dose: 100 mg Zolpidem Tartrate (Ambien) 5 mg PO HS PRN PRN Reason: Insomnia Stop: 05/08/18 18:19 Last Admin: 03/19/18 21:23 Dose: 5 mg General: No acute distress HEENT: Atraumatic Neck: Supple Cardiovascular: Regular rate, Normal S1, Normal S2 Lungs: Clear to auscultation Assessment/Plan - Problem List Patient Problems: All Active Problems Dementia (Acute) F03.90 LEFT FACIAL AND L ARM REDNESS (Acute) - Plan Plan: as per psych Nutritional Asmnt/Malnutr-PDOC - Dietary Evaluation Malnutrition Findings (Please click <Entered> for more info): Nutritional Asmnt/Malnutrition Start: 03/14/18 14: 47 Text: Status: Complete Freq: Protocol: Document 03/14/18 14:47 [email or web address] (Rec: 03/14/18 14:59 LCHENG [email or web address]) Nutritional Asmnt/Malnutrition Patient General Information Nutritional Screening Moderate Risk Diagnosis psychosis Pertinent Medical Hx/Surgical Hx OA Subjective Information pt seen sitting in gomez-chair having lunch by herself. Per EMR, PO intake 100% of meals. Current Diet Order/ Nutrition Support cardiac mech soft chopped Pertinent Medications theragran, seroquel Pertinent Labs 03/09 Cl 109, BUN 38, glucose 107 Nutritional Hx/Data Height 1.57 m Height (Calculated Centimeters) 157.5 Current Weight (lbs) 79.379 kg Weight (Calculated Kilograms) 79.4 Weight (Calculated Grams) 60755.7 [place] Body Weight 110 Body Mass Index (BMI) 32.0 GI Symptoms Last BM 03/13 Skin Integrity/Comment: intact Current %PO Good (75-100%) Estimated Nutritional Goals Calories/Kcals/Kg 25-30 Kcals Calculated 2457-5593 Protein g/k-1.2 Protein Calculated 57-68 Fluid: ml 1425-1710ml (1ml/kcal) Nutritional Problem No current Nutrition Prob Problem N/A Malnutrition Alert Is there a minimum of two criteria No selected? Query Text:Check all the applicable criteria. A minimum of two criteria are recommended for diagnosis of either severe or non-severe malnutrition. Malnutrition Related to Morbid Obesity Malnutrition related to morbid obesity No Intervention/Recommendation Comments 1. Continue with mech soft chopped cardiac diet as ordered. 2. Monitor PO intake, wt, labs and skin integrity 3. F/U as low risk in 7 days, 03/21 Expected Outcomes/Goals Expected Outcomes/Goals 1. PO intake to meet at least 75% of nutritional needs. 2. Wt stability, skin to remain intact, labs to approach WNL.
--- NOTE | 2018-03-22 17:41 | Progress Notes ---
DATE: 03/22/2018 PROGRESS ON THE UNIT: Staff was spoken to. The patient is interviewed. Mood is noted to be irritable. Affect is constricted. Insight and judgment at this time are noted to be still improving. Impulse control seems to be fair today. The patient is isolative and withdrawn. No side effects to the medications are noted, but the patient compliance with the medications is a major concern. The patient has to be ____ to take the medication. It has been becoming difficult to convince the patient the need for the medication. ASSESSMENT: The patient is still impulsive. PLAN: To continue the patient with the supportive therapy. I encouraged the patient to verbalize the concerns. If the patient is going to be willing, possibly the patient is going to be given the Haldol Decanoate and followed up. JOB# [id number]
[2018-03-23] MEDS: Multivitamin Tab PO SCH (08:01)
--- NOTE | 2018-03-23 21:14 | Internal Medicine Prog Note ---
Internal Medicine Subjective - Subjective Service Date: 03/23/18 Patient is:: awake, confused Per staff patient has:: tolerating meds Internal Medicine Objective - Results Result Diagrams: 03/09/18 13:46 03/09/18 13:46 Recent Labs: Laboratory Last Values WBC 5.7 Th/cmm (4.8-10.8) 03/09/18 13:46 RBC 3.64 Mil/cmm (3.80-5.20) L 03/09/18 13:46 Hgb 11.3 gm/dL (12-16) L 03/09/18 13:46 Hct 33.7 % (41.0-60) L 03/09/18 13:46 MCV 92.6 fl (81-100) 03/09/18 13:46 MCH 31.1 pg (27.0-31.0) H 03/09/18 13:46 MCHC Differential 33.6 pg (28.0-36.0) 03/09/18 13:46 RDW 13.7 % (11.5-20.0) 03/09/18 13:46 Plt Count 158 Th/cmm (150-400) 03/09/18 13:46 MPV 10.0 fl 03/09/18 13:46 Neutrophils % 59.0 % (40.0-80.0) 03/09/18 13:46 Lymphocytes % 29.9 % (20.0-50.0) 03/09/18 13:46 Monocytes % 8.6 % (2.0-10.0) 03/09/18 13:46 Eosinophils % 2.1 % (0.0-5.0) 03/09/18 13:46 Basophils % 0.4 % (0.0-2.0) 03/09/18 13:46 PT 10.3 SECONDS (9.5-11.5) 03/09/18 13:46 INR 0.99 (0.5-1.4) 03/09/18 13:46 PTT (Actin FS) 26.2 SECONDS (26.0-38.0) 03/09/18 13:46 Sodium 142 mEq/L (136-145) 03/09/18 13:46 Potassium 3.7 mEq/L (3.5-5.1) 03/09/18 13:46 Chloride 109 mEq/L (98-107) H 03/09/18 13:46 Carbon Dioxide 24.4 mEq/L (21.0-31.0) 03/09/18 13:46 Anion Gap 12.3 (7.0-16.0) 03/09/18 13:46 BUN 38 mg/dL (7-25) H 03/09/18 13:46 Creatinine 1.2 mg/dL (0.6-1.2) 03/09/18 13:46 Est GFR ( Amer) TNP 03/09/18 13:46 Est GFR (Non-Af Amer) TNP 03/09/18 13:46 BUN/Creatinine Ratio 31.7 03/09/18 13:46 Glucose 107 mg/dL (70-105) H 03/09/18 13:46 Calcium 8.9 mg/dL (8.6-10.3) 03/09/18 13:46 Phosphorus 3.1 mg/dL (2.5-5.0) 03/09/18 13:46 Magnesium 2.2 mg/dL (1.9-2.7) 03/09/18 13:46 Total Bilirubin 0.4 mg/dL (0.3-1.0) 03/09/18 13:46 AST 30 U/L (13-39) 03/09/18 13:46 ALT 30 U/L (7-52) 03/09/18 13:46 Alkaline Phosphatase 75 U/L (34-104) 03/09/18 13:46 Total Protein 5.9 gm/dL (6.0-8.3) L 03/09/18 13:46 Albumin 3.7 gm/dL (3.7-5.3) 03/09/18 13:46 Globulin 2.2 gm/dL 03/09/18 13:46 Albumin/Globulin Ratio 1.7 (1.0-1.8) 03/09/18 13:46 TSH 4.46 uIU/ml (0.34-5.60) 03/09/18 13:46 Urine Source CLEAN C 03/09/18 14:50 Urine Color YELLOW 03/09/18 14:50 Urine Clarity CLEAR (CLEAR) 03/09/18 14:50 Urine pH 7.5 (4.6 - 8.0) 03/09/18 14:50 Ur Specific [place] 1.015 (1.005-1.030) 03/09/18 14:50 Urine Protein NEGATIVE mg/dL (NEGATIVE) 03/09/18 14:50 Urine Glucose (UA) NEGATIVE mg/dL (NEGATIVE) 03/09/18 14:50 Urine Ketones NEGATIVE mg/dL (NEGATIVE) 03/09/18 14:50 Urine Blood MODERATE (NEGATIVE) H 03/09/18 14:50 Urine Nitrate NEGATIVE (NEGATIVE) 03/09/18 14:50 Urine Bilirubin NEGATIVE (NEGATIVE) 03/09/18 14:50 Urine Urobilinogen 0.2 E.U./dL (0.2 - 1.0) 03/09/18 14:50 Ur Leukocyte Esterase NEGATIVE (NEGATIVE) 03/09/18 14:50 Urine RBC 10-25 /hpf (0-5) H 03/09/18 14:50 Urine WBC 2-5 /hpf (0-5) 03/09/18 14:50 Ur Epithelial Cells FEW /lpf (FEW) 03/09/18 14:50 Urine Bacteria FEW /hpf (NONE SEEN) 03/09/18 14:50 Urine Opiates Screen NEGATIVE (NEGATIVE) 03/09/18 14:50 Urine Methadone Screen NEGATIVE (NEGATIVE) 03/09/18 14:50 Ur Barbiturates Screen NEGATIVE (NEGATIVE) 03/09/18 14:50 Valproic Acid 41.3 ug/mL (50.0-100.0) L 03/09/18 13:46 Ur Tricyclics Screen POSITIVE (NEGATIVE) H 03/09/18 14:50 Ur Phencyclidine Scrn NEGATIVE (NEGATIVE) 03/09/18 14:50 Amphetamines Screen NEGATIVE (NEGATIVE) 03/09/18 14:50 U Methamphetamines Scrn NEGATIVE (NEGATIVE) 03/09/18 14:50 U Benzodiazepines Scrn NEGATIVE (NEGATIVE) 03/09/18 14:50 U Cocaine Metab Screen NEGATIVE (NEGATIVE) 03/09/18 14:50 U Cannabinoids Screen NEGATIVE (NEGATIVE) 03/09/18 14:50 - Physical Exam Vitals and I&O: Vital Signs Temp 19 F 03/23/18 06:49 Pulse 69 03/22/18 06:24 Resp 19 03/23/18 06:49 BP 136/67 03/22/18 06:24 Pulse Ox 95 03/22/18 06:24 Intake & Output 03/23/18 03/23/18 03/24/18 06:59 18:59 06:59 Intake Total 1200 Balance 1200 Intake: Oral 1200 Other: # Bowel Movements 1 Active Medications: Current Medications Acetaminophen (Tylenol) 650 mg PO Q4HR PRN PRN Reason: Mild Pain / Temp above 100 Stop: 05/08/18 18:19 Al Hydrox/Mg Hydrox/Simethicone (Maalox) 30 ml PO Q4HR PRN PRN Reason: GI DISTRESS Stop: 05/08/18 18:19 Divalproex Sodium (Depakote Dr) 500 mg PO BID [facility]; Protocol Stop: 05/20/18 08:59 Last Admin: 03/23/18 16:46 Dose: 500 mg Haloperidol (Haldol) 2 mg PO BID [facility]; Protocol Stop: 05/17/18 16:59 Last Admin: 03/23/18 16:46 Dose: 2 mg Lorazepam (Ativan) 1 mg PO TID PRN; Protocol PRN Reason: Anxiety Stop: 05/09/18 00:21 Last Admin: 03/23/18 20:49 Dose: 1 mg Magnesium Hydroxide (Milk Of Magnesia) 30 ml PO HS PRN PRN Reason: Constipation Memantine (Namenda) 5 mg PO DAILY [facility] Stop: 05/10/18 08:59 Last Admin: 03/23/18 08:01 Dose: 5 mg Multivitamins/Vitamin C (Theragran) 1 tab PO DAILY [facility] Stop: 05/09/18 08:59 Last Admin: 03/23/18 08:01 Dose: 1 tab Quetiapine Fumarate (Seroquel) 100 mg PO BID [facility]; Protocol Stop: 05/19/18 08:59 Last Admin: 03/23/18 16:46 Dose: 100 mg Zolpidem Tartrate (Ambien) 5 mg PO HS PRN PRN Reason: Insomnia Stop: 05/08/18 18:19 Last Admin: 03/19/18 21:23 Dose: 5 mg General: alert HEENT: NC/AT Neck: Supple Lungs: CTAB Abdomen: soft, non-tender, non-distended Neurological: alert Internal Medicine Assmt/Plan - Assessment Assessment: oa dementia - Plan Plan: fall precautions continue current plan of care Nutritional Asmnt/Malnutr-PDOC - Dietary Evaluation Malnutrition Findings (Please click <Entered> for more info): Nutritional Asmnt/Malnutrition Start: 03/14/18 14: 47 Text: Status: Complete Freq: Protocol: Document 03/14/18 14:47 TATYANAJOEY (Rec: 03/14/18 14:59 TATYANAJOEY [email or web address]) Nutritional Asmnt/Malnutrition Patient General Information Nutritional Screening Moderate Risk Diagnosis psychosis Pertinent Medical Hx/Surgical Hx OA Subjective Information pt seen sitting in gomez-chair having lunch by herself. Per EMR, PO intake 100% of meals. Current Diet Order/ Nutrition Support cardiac [facility] soft chopped Pertinent Medications theragran, seroquel Pertinent Labs 03/09 Cl 109, BUN 38, glucose 107 Nutritional Hx/Data Height 5 ft 2 in Height (Calculated Centimeters) 157.5 Current Weight (lbs) 175 lb Weight (Calculated Kilograms) 79.4 Weight (Calculated Grams) 26531.7 [place] Body Weight 110 Body Mass Index (BMI) 32.0 GI Symptoms Last BM 03/13 Skin Integrity/Comment: intact Current %PO Good (75-100%) Estimated Nutritional Goals Calories/Kcals/Kg 25-30 Kcals Calculated 3342-2169 Protein g/k-1.2 Protein Calculated 57-68 Fluid: ml 1425-1710ml (1ml/kcal) Nutritional Problem No current Nutrition Prob Problem N/A Malnutrition Alert Is there a minimum of two criteria No selected? Query Text:Check all the applicable criteria. A minimum of two criteria are recommended for diagnosis of either severe or non-severe malnutrition. Malnutrition Related to Morbid Obesity Malnutrition related to morbid obesity No Intervention/Recommendation Comments 1. Continue with [facility] soft chopped cardiac diet as ordered. 2. Monitor PO intake, wt, labs and skin integrity 3. F/U as low risk in 7 days, 03/21 Expected Outcomes/Goals Expected Outcomes/Goals 1. PO intake to meet at least 75% of nutritional needs. 2. Wt stability, skin to remain intact, labs to approach WNL.
--- NOTE | 2018-03-24 03:02 | Progress Notes ---
DATE: 03/23/2018 PSYCHIATRIC PROGRESS NOTE SUBJECTIVE: Staff was spoken to. The patient is interviewed. Mood is noted to be irritable. Affect is constricted. Insight and judgment are noted to be still impaired. Impulse control seems to be improving. The patient has paranoia, but denies any command hallucinations. The patient is currently on Seroquel 100 mg twice a day and has been able to tolerate. Because of the impulsivity, we have her on 500 mg twice a day of Depakote. ASSESSMENT: The patient is still having mood swings. PLAN: To continue the patient with supportive therapy. I encouraged the patient to verbalize the concerns rather than to act out. JOB# [id number]
[2018-03-24] MEDS: Multivitamin Tab PO SCH (08:18)
--- NOTE | 2018-03-24 17:00 | Progress Notes ---
DATE: 03/24/2018 PSYCHIATRIC PROGRESS NOTE PROGRESS ON THE UNIT: Staff was spoken to. The patient is interviewed. Mood is noted to be less irritable. Affect is appropriate. The patient has been isolative and withdrawn today. No major behavioral problems are noted. The patient is currently on 100 mg twice a day of Seroquel and 2 mg twice a day of haloperidol, and since the patient has been too sleepy, it is decided to ease up on haloperidol and the patient is going to be just maintained with Seroquel and Depakote. No major side effects to the medications are noted. The patient is going to be closely monitored. land development project manager has been requested to communicate with the family and look for possible discharge of the patient if the facility is willing to accept the patient. JOB# [id number]
--- NOTE | 2018-03-24 17:33 | Progress Notes ---
DATE: 03/24/2018 SUBJECTIVE: The patient was seen in her room. The patient is awake, alert, but forgetful, appears to be guarded, easily gets frustrated. Otherwise, the patient is in no acute distress. OBJECTIVE: VITAL SIGNS: Temperature 98.5, heart rate 69, blood pressure 136/67, respirations of 20, 95% on room air. HEENT: Head is atraumatic and normocephalic. Eyes: Bilateral conjunctivae are clear. Bilateral pupils are equally round and reactive. NECK: Supple. No JVD. CARDIOVASCULAR: S1 and S2, without murmur. PULMONARY: Clear to auscultation. GASTROINTESTINAL: Soft and nontender without guarding. Positive bowel sounds. MUSCULOSKELETAL: No clubbing. No cyanosis noted. ASSESSMENT: 1. Dementia. 2. Osteoarthritis. PLAN: We will keep the patient inpatient to Psychiatric Unit and we will follow up with a psychiatrist to monitor the patient's condition and behavior. Treatment plans were discussed with the patient's nurse. Treatment plans were discussed with Dr. Pereyra. JOB# [id number]
[2018-03-25] MEDS: Multivitamin Tab PO SCH (09:50)
--- NOTE | 2018-03-25 12:22 | General Progress Note ---
Subjective - Review of Systems Events since last encounter: withdrawn depressed less irritable denies pain Objective - Results Result Diagrams: 03/09/18 13:46 03/09/18 13:46 Recent Labs: Laboratory Last Values WBC 5.7 Th/cmm (4.8-10.8) 03/09/18 13:46 RBC 3.64 Mil/cmm (3.80-5.20) L 03/09/18 13:46 Hgb 11.3 gm/dL (12-16) L 03/09/18 13:46 Hct 33.7 % (41.0-60) L 03/09/18 13:46 MCV 92.6 fl (81-100) 03/09/18 13:46 MCH 31.1 pg (27.0-31.0) H 03/09/18 13:46 MCHC Differential 33.6 pg (28.0-36.0) 03/09/18 13:46 RDW 13.7 % (11.5-20.0) 03/09/18 13:46 Plt Count 158 Th/cmm (150-400) 03/09/18 13:46 MPV 10.0 fl 03/09/18 13:46 Neutrophils % 59.0 % (40.0-80.0) 03/09/18 13:46 Lymphocytes % 29.9 % (20.0-50.0) 03/09/18 13:46 Monocytes % 8.6 % (2.0-10.0) 03/09/18 13:46 Eosinophils % 2.1 % (0.0-5.0) 03/09/18 13:46 Basophils % 0.4 % (0.0-2.0) 03/09/18 13:46 PT 10.3 SECONDS (9.5-11.5) 03/09/18 13:46 INR 0.99 (0.5-1.4) 03/09/18 13:46 PTT (Actin FS) 26.2 SECONDS (26.0-38.0) 03/09/18 13:46 Sodium 142 mEq/L (136-145) 03/09/18 13:46 Potassium 3.7 mEq/L (3.5-5.1) 03/09/18 13:46 Chloride 109 mEq/L (98-107) H 03/09/18 13:46 Carbon Dioxide 24.4 mEq/L (21.0-31.0) 03/09/18 13:46 Anion Gap 12.3 (7.0-16.0) 03/09/18 13:46 BUN 38 mg/dL (7-25) H 03/09/18 13:46 Creatinine 1.2 mg/dL (0.6-1.2) 03/09/18 13:46 Est GFR ( Amer) TNP 03/09/18 13:46 Est GFR (Non-Af Amer) TNP 03/09/18 13:46 BUN/Creatinine Ratio 31.7 03/09/18 13:46 Glucose 107 mg/dL (70-105) H 03/09/18 13:46 Calcium 8.9 mg/dL (8.6-10.3) 03/09/18 13:46 Phosphorus 3.1 mg/dL (2.5-5.0) 03/09/18 13:46 Magnesium 2.2 mg/dL (1.9-2.7) 03/09/18 13:46 Total Bilirubin 0.4 mg/dL (0.3-1.0) 03/09/18 13:46 AST 30 U/L (13-39) 03/09/18 13:46 ALT 30 U/L (7-52) 03/09/18 13:46 Alkaline Phosphatase 75 U/L (34-104) 03/09/18 13:46 Total Protein 5.9 gm/dL (6.0-8.3) L 03/09/18 13:46 Albumin 3.7 gm/dL (3.7-5.3) 03/09/18 13:46 Globulin 2.2 gm/dL 03/09/18 13:46 Albumin/Globulin Ratio 1.7 (1.0-1.8) 03/09/18 13:46 TSH 4.46 uIU/ml (0.34-5.60) 03/09/18 13:46 Urine Source CLEAN C 03/09/18 14:50 Urine Color YELLOW 03/09/18 14:50 Urine Clarity CLEAR (CLEAR) 03/09/18 14:50 Urine pH 7.5 (4.6 - 8.0) 03/09/18 14:50 Ur Specific [place] 1.015 (1.005-1.030) 03/09/18 14:50 Urine Protein NEGATIVE mg/dL (NEGATIVE) 03/09/18 14:50 Urine Glucose (UA) NEGATIVE mg/dL (NEGATIVE) 03/09/18 14:50 Urine Ketones NEGATIVE mg/dL (NEGATIVE) 03/09/18 14:50 Urine Blood MODERATE (NEGATIVE) H 03/09/18 14:50 Urine Nitrate NEGATIVE (NEGATIVE) 03/09/18 14:50 Urine Bilirubin NEGATIVE (NEGATIVE) 03/09/18 14:50 Urine Urobilinogen 0.2 E.U./dL (0.2 - 1.0) 03/09/18 14:50 Ur Leukocyte Esterase NEGATIVE (NEGATIVE) 03/09/18 14:50 Urine RBC 10-25 /hpf (0-5) H 03/09/18 14:50 Urine WBC 2-5 /hpf (0-5) 03/09/18 14:50 Ur Epithelial Cells FEW /lpf (FEW) 03/09/18 14:50 Urine Bacteria FEW /hpf (NONE SEEN) 03/09/18 14:50 Urine Opiates Screen NEGATIVE (NEGATIVE) 03/09/18 14:50 Urine Methadone Screen NEGATIVE (NEGATIVE) 03/09/18 14:50 Ur Barbiturates Screen NEGATIVE (NEGATIVE) 03/09/18 14:50 Valproic Acid 41.3 ug/mL (50.0-100.0) L 03/09/18 13:46 Ur Tricyclics Screen POSITIVE (NEGATIVE) H 03/09/18 14:50 Ur Phencyclidine Scrn NEGATIVE (NEGATIVE) 03/09/18 14:50 Amphetamines Screen NEGATIVE (NEGATIVE) 03/09/18 14:50 U Methamphetamines Scrn NEGATIVE (NEGATIVE) 03/09/18 14:50 U Benzodiazepines Scrn NEGATIVE (NEGATIVE) 03/09/18 14:50 U Cocaine Metab Screen NEGATIVE (NEGATIVE) 03/09/18 14:50 U Cannabinoids Screen NEGATIVE (NEGATIVE) 03/09/18 14:50 - Physical Exam Vitals and I&O: Vital Signs Temp 97.7 F 03/24/18 15:22 Pulse 70 03/24/18 15:22 Resp 18 03/24/18 15:22 BP 120/66 03/24/18 15:22 Pulse Ox 98 03/24/18 15:22 Intake & Output 03/24/18 03/25/18 03/25/18 18:59 06:59 18:59 Intake Total 1200 240 Balance 1200 240 Intake: Oral 1200 240 Other: # Voids 1 # Bowel Movements 1 1 Active Medications: Current Medications Acetaminophen (Tylenol) 650 mg PO Q4HR PRN PRN Reason: Mild Pain / Temp above 100 Stop: 05/08/18 18:19 Al Hydrox/Mg Hydrox/Simethicone (Maalox) 30 ml PO Q4HR PRN PRN Reason: GI DISTRESS Stop: 05/08/18 18:19 Divalproex Sodium (Depakote Dr) 500 mg PO BID [facility]; Protocol Stop: 05/20/18 08:59 Last Admin: 03/25/18 09:49 Dose: 500 mg Magnesium Hydroxide (Milk Of Magnesia) 30 ml PO HS PRN PRN Reason: Constipation Memantine (Namenda) 5 mg PO DAILY [facility] Stop: 05/10/18 08:59 Last Admin: 03/25/18 09:49 Dose: 5 mg Multivitamins/Vitamin C (Theragran) 1 tab PO DAILY [facility] Stop: 05/09/18 08:59 Last Admin: 03/25/18 09:50 Dose: Not Given Quetiapine Fumarate (Seroquel) 100 mg PO BID [facility]; Protocol Stop: 05/19/18 08:59 Last Admin: 03/25/18 09:49 Dose: 100 mg General: No acute distress HEENT: Atraumatic Neck: Supple Cardiovascular: Regular rate, Normal S1, Normal S2 Lungs: Clear to auscultation Assessment/Plan - Problem List Patient Problems: All Active Problems Dementia (Acute) F03.90 LEFT FACIAL AND L ARM REDNESS (Acute) - Plan Plan: as per psych Nutritional Asmnt/Malnutr-PDOC - Dietary Evaluation Malnutrition Findings (Please click <Entered> for more info): Nutritional Asmnt/Malnutrition Start: 03/14/18 14: 47 Text: Status: Complete Freq: Protocol: Document 03/14/18 14:47 SUSAN (Rec: 03/14/18 14:59 SUSAN [email or web address]) Nutritional Asmnt/Malnutrition Patient General Information Nutritional Screening Moderate Risk Diagnosis psychosis Pertinent Medical Hx/Surgical Hx OA Subjective Information pt seen sitting in gomez-chair having lunch by herself. Per EMR, PO intake 100% of meals. Current Diet Order/ Nutrition Support cardiac [facility] soft chopped Pertinent Medications theragran, seroquel Pertinent Labs 03/09 Cl 109, BUN 38, glucose 107 Nutritional Hx/Data Height 1.57 m Height (Calculated Centimeters) 157.5 Current Weight (lbs) 79.379 kg Weight (Calculated Kilograms) 79.4 Weight (Calculated Grams) 75324.7 [place] Body Weight 110 Body Mass Index (BMI) 32.0 GI Symptoms Last BM 03/13 Skin Integrity/Comment: intact Current %PO Good (75-100%) Estimated Nutritional Goals Calories/Kcals/Kg 25-30 Kcals Calculated 3336-9125 Protein g/k-1.2 Protein Calculated 57-68 Fluid: ml 1425-1710ml (1ml/kcal) Nutritional Problem No current Nutrition Prob Problem N/A Malnutrition Alert Is there a minimum of two criteria No selected? Query Text:Check all the applicable criteria. A minimum of two criteria are recommended for diagnosis of either severe or non-severe malnutrition. Malnutrition Related to Morbid Obesity Malnutrition related to morbid obesity No Intervention/Recommendation Comments 1. Continue with [facility] soft chopped cardiac diet as ordered. 2. Monitor PO intake, wt, labs and skin integrity 3. F/U as low risk in 7 days, 03/21 Expected Outcomes/Goals Expected Outcomes/Goals 1. PO intake to meet at least 75% of nutritional needs. 2. Wt stability, skin to remain intact, labs to approach WNL.
--- NOTE | 2018-03-26 02:49 | Progress Notes ---
DATE: 03/25/2018 PSYCHIATRIC PROGRESS NOTE SUBJECTIVE: Staff was spoken to. The patient is interviewed. Mood is noted to be irritable. Affect is constricted. Insight and judgment at this time are noted to be still impaired. Impulse control is noted to be poor. The patient is reported to have been smearing feces all over last night, but this morning the patient has been very quiet and has been resting in the bed. No side effects to the medications are noted at this time. PLAN: manager decision support has been requested to look for possible discharge, but so far we have not heard anything with regards to placement. JOB# [id number]
[2018-03-26] MEDS: Multivitamin Tab PO SCH (09:35)
--- NOTE | 2018-03-26 15:58 | General Progress Note ---
Subjective - Review of Systems Events since last encounter: patient irritable confused waiting for placement Objective - Results Result Diagrams: 03/09/18 13:46 03/09/18 13:46 Recent Labs: Laboratory Last Values WBC 5.7 Th/cmm (4.8-10.8) 03/09/18 13:46 RBC 3.64 Mil/cmm (3.80-5.20) L 03/09/18 13:46 Hgb 11.3 gm/dL (12-16) L 03/09/18 13:46 Hct 33.7 % (41.0-60) L 03/09/18 13:46 MCV 92.6 fl (81-100) 03/09/18 13:46 MCH 31.1 pg (27.0-31.0) H 03/09/18 13:46 MCHC Differential 33.6 pg (28.0-36.0) 03/09/18 13:46 RDW 13.7 % (11.5-20.0) 03/09/18 13:46 Plt Count 158 Th/cmm (150-400) 03/09/18 13:46 MPV 10.0 fl 03/09/18 13:46 Neutrophils % 59.0 % (40.0-80.0) 03/09/18 13:46 Lymphocytes % 29.9 % (20.0-50.0) 03/09/18 13:46 Monocytes % 8.6 % (2.0-10.0) 03/09/18 13:46 Eosinophils % 2.1 % (0.0-5.0) 03/09/18 13:46 Basophils % 0.4 % (0.0-2.0) 03/09/18 13:46 PT 10.3 SECONDS (9.5-11.5) 03/09/18 13:46 INR 0.99 (0.5-1.4) 03/09/18 13:46 PTT (Actin FS) 26.2 SECONDS (26.0-38.0) 03/09/18 13:46 Sodium 142 mEq/L (136-145) 03/09/18 13:46 Potassium 3.7 mEq/L (3.5-5.1) 03/09/18 13:46 Chloride 109 mEq/L (98-107) H 03/09/18 13:46 Carbon Dioxide 24.4 mEq/L (21.0-31.0) 03/09/18 13:46 Anion Gap 12.3 (7.0-16.0) 03/09/18 13:46 BUN 38 mg/dL (7-25) H 03/09/18 13:46 Creatinine 1.2 mg/dL (0.6-1.2) 03/09/18 13:46 Est GFR ( Amer) TNP 03/09/18 13:46 Est GFR (Non-Af Amer) TNP 03/09/18 13:46 BUN/Creatinine Ratio 31.7 03/09/18 13:46 Glucose 107 mg/dL (70-105) H 03/09/18 13:46 Calcium 8.9 mg/dL (8.6-10.3) 03/09/18 13:46 Phosphorus 3.1 mg/dL (2.5-5.0) 03/09/18 13:46 Magnesium 2.2 mg/dL (1.9-2.7) 03/09/18 13:46 Total Bilirubin 0.4 mg/dL (0.3-1.0) 03/09/18 13:46 AST 30 U/L (13-39) 03/09/18 13:46 ALT 30 U/L (7-52) 03/09/18 13:46 Alkaline Phosphatase 75 U/L (34-104) 03/09/18 13:46 Total Protein 5.9 gm/dL (6.0-8.3) L 03/09/18 13:46 Albumin 3.7 gm/dL (3.7-5.3) 03/09/18 13:46 Globulin 2.2 gm/dL 03/09/18 13:46 Albumin/Globulin Ratio 1.7 (1.0-1.8) 03/09/18 13:46 TSH 4.46 uIU/ml (0.34-5.60) 03/09/18 13:46 Urine Source CLEAN C 03/09/18 14:50 Urine Color YELLOW 03/09/18 14:50 Urine Clarity CLEAR (CLEAR) 03/09/18 14:50 Urine pH 7.5 (4.6 - 8.0) 03/09/18 14:50 Ur Specific [place] 1.015 (1.005-1.030) 03/09/18 14:50 Urine Protein NEGATIVE mg/dL (NEGATIVE) 03/09/18 14:50 Urine Glucose (UA) NEGATIVE mg/dL (NEGATIVE) 03/09/18 14:50 Urine Ketones NEGATIVE mg/dL (NEGATIVE) 03/09/18 14:50 Urine Blood MODERATE (NEGATIVE) H 03/09/18 14:50 Urine Nitrate NEGATIVE (NEGATIVE) 03/09/18 14:50 Urine Bilirubin NEGATIVE (NEGATIVE) 03/09/18 14:50 Urine Urobilinogen 0.2 E.U./dL (0.2 - 1.0) 03/09/18 14:50 Ur Leukocyte Esterase NEGATIVE (NEGATIVE) 03/09/18 14:50 Urine RBC 10-25 /hpf (0-5) H 03/09/18 14:50 Urine WBC 2-5 /hpf (0-5) 03/09/18 14:50 Ur Epithelial Cells FEW /lpf (FEW) 03/09/18 14:50 Urine Bacteria FEW /hpf (NONE SEEN) 03/09/18 14:50 Urine Opiates Screen NEGATIVE (NEGATIVE) 03/09/18 14:50 Urine Methadone Screen NEGATIVE (NEGATIVE) 03/09/18 14:50 Ur Barbiturates Screen NEGATIVE (NEGATIVE) 03/09/18 14:50 Valproic Acid 41.3 ug/mL (50.0-100.0) L 03/09/18 13:46 Ur Tricyclics Screen POSITIVE (NEGATIVE) H 03/09/18 14:50 Ur Phencyclidine Scrn NEGATIVE (NEGATIVE) 03/09/18 14:50 Amphetamines Screen NEGATIVE (NEGATIVE) 03/09/18 14:50 U Methamphetamines Scrn NEGATIVE (NEGATIVE) 03/09/18 14:50 U Benzodiazepines Scrn NEGATIVE (NEGATIVE) 03/09/18 14:50 U Cocaine Metab Screen NEGATIVE (NEGATIVE) 03/09/18 14:50 U Cannabinoids Screen NEGATIVE (NEGATIVE) 03/09/18 14:50 - Physical Exam Vitals and I&O: Vital Signs Temp 0 F 03/26/18 06:31 Pulse 74 03/25/18 20:22 Resp 18 03/25/18 20:22 BP 118/70 03/25/18 20:22 Pulse Ox 96 03/25/18 20:22 Intake & Output 03/25/18 03/26/1818 18:59 06:59 18:59 Intake Total 950 240 Balance 950 240 Weight (lbs) 79.379 kg Intake: Oral 950 240 Other: # Voids 4 3 # Bowel Movements 1 0 Weight Source Bedscale Active Medications: Current Medications Acetaminophen (Tylenol) 650 mg PO Q4HR PRN PRN Reason: Mild Pain / Temp above 100 Stop: 05/08/18 18:19 Al Hydrox/Mg Hydrox/Simethicone (Maalox) 30 ml PO Q4HR PRN PRN Reason: GI DISTRESS Stop: 05/08/18 18:19 Divalproex Sodium (Depakote Dr) 500 mg PO BID [facility]; Protocol Stop: 05/20/18 08:59 Last Admin: 03/26/18 09:35 Dose: 500 mg Magnesium Hydroxide (Milk Of Magnesia) 30 ml PO HS PRN PRN Reason: Constipation Memantine (Namenda) 5 mg PO DAILY [facility] Stop: 05/10/18 08:59 Last Admin: 03/26/18 09:35 Dose: 5 mg Multivitamins/Vitamin C (Theragran) 1 tab PO DAILY [facility] Stop: 05/09/18 08:59 Last Admin: 03/26/18 09:35 Dose: 1 tab Quetiapine Fumarate (Seroquel) 100 mg PO BID [facility]; Protocol Stop: 05/19/18 08:59 Last Admin: 03/26/18 09:36 Dose: 100 mg General: No acute distress HEENT: Atraumatic Neck: Supple Cardiovascular: Regular rate, Normal S1, Normal S2 Lungs: Clear to auscultation Assessment/Plan - Problem List Patient Problems: All Active Problems Dementia (Acute) F03.90 LEFT FACIAL AND L ARM REDNESS (Acute) - Plan Plan: as per psych Nutritional Asmnt/Malnutr-PDOC - Dietary Evaluation Malnutrition Findings (Please click <Entered> for more info): Nutritional Asmnt/Malnutrition Start: 03/14/18 14: 47 Text: Status: Complete Freq: Protocol: Document 03/14/18 14:47 LCAZULG (Rec: 03/14/18 14:59 SUSAN [email or web address]) Nutritional Asmnt/Malnutrition Patient General Information Nutritional Screening Moderate Risk Diagnosis psychosis Pertinent Medical Hx/Surgical Hx OA Subjective Information pt seen sitting in gomez-chair having lunch by herself. Per EMR, PO intake 100% of meals. Current Diet Order/ Nutrition Support cardiac [facility] soft chopped Pertinent Medications theragran, seroquel Pertinent Labs 03/09 Cl 109, BUN 38, glucose 107 Nutritional Hx/Data Height 1.57 m Height (Calculated Centimeters) 157.5 Current Weight (lbs) 79.379 kg Weight (Calculated Kilograms) 79.4 Weight (Calculated Grams) 96223.7 [place] Body Weight 110 Body Mass Index (BMI) 32.0 GI Symptoms Last BM 03/13 Skin Integrity/Comment: intact Current %PO Good (75-100%) Estimated Nutritional Goals Calories/Kcals/Kg 25-30 Kcals Calculated 9400-7102 Protein g/k-1.2 Protein Calculated 57-68 Fluid: ml 1425-1710ml (1ml/kcal) Nutritional Problem No current Nutrition Prob Problem N/A Malnutrition Alert Is there a minimum of two criteria No selected? Query Text:Check all the applicable criteria. A minimum of two criteria are recommended for diagnosis of either severe or non-severe malnutrition. Malnutrition Related to Morbid Obesity Malnutrition related to morbid obesity No Intervention/Recommendation Comments 1. Continue with [facility] soft chopped cardiac diet as ordered. 2. Monitor PO intake, wt, labs and skin integrity 3. F/U as low risk in 7 days, 03/21 Expected Outcomes/Goals Expected Outcomes/Goals 1. PO intake to meet at least 75% of nutritional needs. 2. Wt stability, skin to remain intact, labs to approach WNL.
--- NOTE | 2018-03-26 21:07 | Progress Notes ---
DATE: 03/26/2018 PSYCHIATRIC PROGRESS NOTE SUBJECTIVE: Staff was spoken to. The patient is interviewed. Mood is noted to be anxious. Affect is appropriate. Not suicidal or homicidal today. Coping skills are noted to be fair. The patient has paranoia and dementia. No major behavioral problems are noted. ASSESSMENT: The patient is stabilizing. PLAN: To discharge the patient today for followup on an outpatient basis. JOB# [id number]
[2018-03-27] MEDS: Multivitamin Tab PO SCH (10:05)
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
--- NOTE | 2018-03-27 12:54 | ER Physician Documentation ---
DATE OF SERVICE: 03/09/2018 ER EVALUATION NOTE A#: [id number] She presents with a complaint of increased agitation, she presented on 03/09/2018. They also said that she had facial pain and facial cellulitis present. The patient JOB# [id number]
--- NOTE | 2018-03-27 13:21 | Internal Medicine Prog Note ---
Internal Medicine Subjective - Subjective Service Date: 03/27/18 Patient is:: awake, confused Per staff patient has:: tolerating meds Internal Medicine Objective - Results Result Diagrams: 03/09/18 13:46 03/09/18 13:46 Recent Labs: Laboratory Last Values WBC 5.7 Th/cmm (4.8-10.8) 03/09/18 13:46 RBC 3.64 Mil/cmm (3.80-5.20) L 03/09/18 13:46 Hgb 11.3 gm/dL (12-16) L 03/09/18 13:46 Hct 33.7 % (41.0-60) L 03/09/18 13:46 MCV 92.6 fl (81-100) 03/09/18 13:46 MCH 31.1 pg (27.0-31.0) H 03/09/18 13:46 MCHC Differential 33.6 pg (28.0-36.0) 03/09/18 13:46 RDW 13.7 % (11.5-20.0) 03/09/18 13:46 Plt Count 158 Th/cmm (150-400) 03/09/18 13:46 MPV 10.0 fl 03/09/18 13:46 Neutrophils % 59.0 % (40.0-80.0) 03/09/18 13:46 Lymphocytes % 29.9 % (20.0-50.0) 03/09/18 13:46 Monocytes % 8.6 % (2.0-10.0) 03/09/18 13:46 Eosinophils % 2.1 % (0.0-5.0) 03/09/18 13:46 Basophils % 0.4 % (0.0-2.0) 03/09/18 13:46 PT 10.3 SECONDS (9.5-11.5) 03/09/18 13:46 INR 0.99 (0.5-1.4) 03/09/18 13:46 PTT (Actin FS) 26.2 SECONDS (26.0-38.0) 03/09/18 13:46 Sodium 142 mEq/L (136-145) 03/09/18 13:46 Potassium 3.7 mEq/L (3.5-5.1) 03/09/18 13:46 Chloride 109 mEq/L (98-107) H 03/09/18 13:46 Carbon Dioxide 24.4 mEq/L (21.0-31.0) 03/09/18 13:46 Anion Gap 12.3 (7.0-16.0) 03/09/18 13:46 BUN 38 mg/dL (7-25) H 03/09/18 13:46 Creatinine 1.2 mg/dL (0.6-1.2) 03/09/18 13:46 Est GFR ( Amer) TNP 03/09/18 13:46 Est GFR (Non-Af Amer) TNP 03/09/18 13:46 BUN/Creatinine Ratio 31.7 03/09/18 13:46 Glucose 107 mg/dL (70-105) H 03/09/18 13:46 Calcium 8.9 mg/dL (8.6-10.3) 03/09/18 13:46 Phosphorus 3.1 mg/dL (2.5-5.0) 03/09/18 13:46 Magnesium 2.2 mg/dL (1.9-2.7) 03/09/18 13:46 Total Bilirubin 0.4 mg/dL (0.3-1.0) 03/09/18 13:46 AST 30 U/L (13-39) 03/09/18 13:46 ALT 30 U/L (7-52) 03/09/18 13:46 Alkaline Phosphatase 75 U/L (34-104) 03/09/18 13:46 Total Protein 5.9 gm/dL (6.0-8.3) L 03/09/18 13:46 Albumin 3.7 gm/dL (3.7-5.3) 03/09/18 13:46 Globulin 2.2 gm/dL 03/09/18 13:46 Albumin/Globulin Ratio 1.7 (1.0-1.8) 03/09/18 13:46 TSH 4.46 uIU/ml (0.34-5.60) 03/09/18 13:46 Urine Source CLEAN C 03/09/18 14:50 Urine Color YELLOW 03/09/18 14:50 Urine Clarity CLEAR (CLEAR) 03/09/18 14:50 Urine pH 7.5 (4.6 - 8.0) 03/09/18 14:50 Ur Specific [place] 1.015 (1.005-1.030) 03/09/18 14:50 Urine Protein NEGATIVE mg/dL (NEGATIVE) 03/09/18 14:50 Urine Glucose (UA) NEGATIVE mg/dL (NEGATIVE) 03/09/18 14:50 Urine Ketones NEGATIVE mg/dL (NEGATIVE) 03/09/18 14:50 Urine Blood MODERATE (NEGATIVE) H 03/09/18 14:50 Urine Nitrate NEGATIVE (NEGATIVE) 03/09/18 14:50 Urine Bilirubin NEGATIVE (NEGATIVE) 03/09/18 14:50 Urine Urobilinogen 0.2 E.U./dL (0.2 - 1.0) 03/09/18 14:50 Ur Leukocyte Esterase NEGATIVE (NEGATIVE) 03/09/18 14:50 Urine RBC 10-25 /hpf (0-5) H 03/09/18 14:50 Urine WBC 2-5 /hpf (0-5) 03/09/18 14:50 Ur Epithelial Cells FEW /lpf (FEW) 03/09/18 14:50 Urine Bacteria FEW /hpf (NONE SEEN) 03/09/18 14:50 Urine Opiates Screen NEGATIVE (NEGATIVE) 03/09/18 14:50 Urine Methadone Screen NEGATIVE (NEGATIVE) 03/09/18 14:50 Ur Barbiturates Screen NEGATIVE (NEGATIVE) 03/09/18 14:50 Valproic Acid 41.3 ug/mL (50.0-100.0) L 03/09/18 13:46 Ur Tricyclics Screen POSITIVE (NEGATIVE) H 03/09/18 14:50 Ur Phencyclidine Scrn NEGATIVE (NEGATIVE) 03/09/18 14:50 Amphetamines Screen NEGATIVE (NEGATIVE) 03/09/18 14:50 U Methamphetamines Scrn NEGATIVE (NEGATIVE) 03/09/18 14:50 U Benzodiazepines Scrn NEGATIVE (NEGATIVE) 03/09/18 14:50 U Cocaine Metab Screen NEGATIVE (NEGATIVE) 03/09/18 14:50 U Cannabinoids Screen NEGATIVE (NEGATIVE) 03/09/18 14:50 - Physical Exam Vitals and I&O: Vital Signs Temp 0 F 03/27/18 06:23 Pulse 78 03/26/18 17:50 Resp 20 03/26/18 17:50 BP 143/80 03/26/18 17:50 Pulse Ox 96 03/26/18 17:50 Intake & Output 03/26/1818 03/27/18 18:59 06:59 18:59 Intake Total 1000 120 Balance 1000 120 Weight (lbs) 175 lb Intake: Oral 1000 120 Other: # Voids 4 3 # Bowel Movements 2 0 Weight Source Bedscale Active Medications: Current Medications Acetaminophen (Tylenol) 650 mg PO Q4HR PRN PRN Reason: Mild Pain / Temp above 100 Stop: 05/08/18 18:19 Al Hydrox/Mg Hydrox/Simethicone (Maalox) 30 ml PO Q4HR PRN PRN Reason: GI DISTRESS Stop: 05/08/18 18:19 Divalproex Sodium (Depakote Dr) 500 mg PO BID [facility]; Protocol Stop: 05/20/18 08:59 Last Admin: 03/27/18 10:05 Dose: 500 mg Magnesium Hydroxide (Milk Of Magnesia) 30 ml PO HS PRN PRN Reason: Constipation Memantine (Namenda) 5 mg PO DAILY [facility] Stop: 05/10/18 08:59 Last Admin: 03/27/18 10:06 Dose: 5 mg Multivitamins/Vitamin C (Theragran) 1 tab PO DAILY [facility] Stop: 05/09/18 08:59 Last Admin: 03/27/18 10:05 Dose: 1 tab Quetiapine Fumarate (Seroquel) 100 mg PO BID [facility]; Protocol Stop: 05/19/18 08:59 Last Admin: 03/27/18 10:05 Dose: 100 mg General: alert HEENT: NC/AT Neck: Supple Lungs: CTAB Abdomen: soft, non-tender, non-distended Neurological: alert Internal Medicine Assmt/Plan - Assessment Assessment: oa dementia - Plan Plan: fall precautions continue current plan of care Nutritional Asmnt/Malnutr-PDOC - Dietary Evaluation Malnutrition Findings (Please click <Entered> for more info): Nutritional Asmnt/Malnutrition Start: 03/14/18 14: 47 Text: Status: Complete Freq: Protocol: Document 03/14/18 14:47 MELAG (Rec: 03/14/18 14:59 SUSAN [email or web address]) Nutritional Asmnt/Malnutrition Patient General Information Nutritional Screening Moderate Risk Diagnosis psychosis Pertinent Medical Hx/Surgical Hx OA Subjective Information pt seen sitting in gomez-chair having lunch by herself. Per EMR, PO intake 100% of meals. Current Diet Order/ Nutrition Support cardiac [facility] soft chopped Pertinent Medications theragran, seroquel Pertinent Labs 03/09 Cl 109, BUN 38, glucose 107 Nutritional Hx/Data Height 5 ft 2 in Height (Calculated Centimeters) 157.5 Current Weight (lbs) 175 lb Weight (Calculated Kilograms) 79.4 Weight (Calculated Grams) 00479.7 [place] Body Weight 110 Body Mass Index (BMI) 32.0 GI Symptoms Last BM 03/13 Skin Integrity/Comment: intact Current %PO Good (75-100%) Estimated Nutritional Goals Calories/Kcals/Kg 25-30 Kcals Calculated 4127-6108 Protein g/k-1.2 Protein Calculated 57-68 Fluid: ml 1425-1710ml (1ml/kcal) Nutritional Problem No current Nutrition Prob Problem N/A Malnutrition Alert Is there a minimum of two criteria No selected? Query Text:Check all the applicable criteria. A minimum of two criteria are recommended for diagnosis of either severe or non-severe malnutrition. Malnutrition Related to Morbid Obesity Malnutrition related to morbid obesity No Intervention/Recommendation Comments 1. Continue with [facility] soft chopped cardiac diet as ordered. 2. Monitor PO intake, wt, labs and skin integrity 3. F/U as low risk in 7 days, 03/21 Expected Outcomes/Goals Expected Outcomes/Goals 1. PO intake to meet at least 75% of nutritional needs. 2. Wt stability, skin to remain intact, labs to approach WNL.
--- NOTE | 2018-04-03 09:48 | Discharge Summary ---
DATE OF DISCHARGE: 03/27/2018 IDENTIFYING DATA: The patient is a 77-year-old admitted from [facility]. JUSTIFICATION OF HOSPITALIZATION: The patient is admitted here for acute psychosis. CHIEF COMPLAINT: "I don't know. You tell me." DIAGNOSES AT THE TIME OF ADMISSION: AXIS I: A. Dementia and behavioral change, secondary trait. B. Delusional disorder. HOSPITAL COURSE AND RESPONSE TO TREATMENT: The patient had been closely monitored on the inpatient unit, provided with supportive psychotherapy. The patient has been encouraged to verbalize the concerns rather than to act out. The patient has been closely monitored on the inpatient unit and the patient has been finally discharged on 03/27/2018, to [facility] with recommendation that she is going to be seeking treatment on an outpatient basis. MENTAL STATUS EXAMINATION: At the time of discharge, the patient's mood is noted to be less irritable. Affect is appropriate. Not suicidal or homicidal. Insight and judgment are noted to be improving. Impulse control seems to be fair. No side effects to the medications are noted. However, the patient continues to be paranoid. ASSESSMENT: The patient is improving. PLAN: Plan to discharge the patient to [facility] for further followup. DIAGNOSES AT THE TIME OF DISCHARGE: AXIS I: Psychotic disorder, not otherwise specified. AXIS II: None. AXIS III: As per Dr. Pereyra. AFTERCARE PLAN: The patient is discharged to the custodial facility for further followup. PROGNOSIS: At the time of discharge noted to be guarded. JOB# [id number]
== END 2018-03-27 12:00 | DRG 885 ==
LOC: ER 12:58 → GERO 16:23 → ER 17:35
PROVIDERS: ADMIT Psychiatry & Neurology Psychiatry; ATTEND Psychiatry & Neurology Psychiatry
DX: F29 Unspecified psychosis not due to a substance or known physiological condition (principal); F03.91 Unspecified dementia, unspecified severity, with behavioral disturbance; L03.211 Cellulitis of face; M19.90 Unspecified osteoarthritis, unspecified site
CPT/HCPCS: 36415-UA; 80053-TC; 80164-TC; 80307; 81001-TC; 83036-90; 83735-TC; 84100-TC; 84443-TC; 85025-TC; 85610-TC; 87086-90; 90899; 96374; G0410; J1200; J1630; J2060; Z7610